=== PATIENT | female | born 1995 | race Caucasian/White ===

== ENCOUNTER 2016-06-25 07:03 | Emergency (ER) | payer MEDICAID, OTHER ==
[2016-06-25 08:12] LABS: CONTROL LINE UCG INT CTR LINE PRESENT
[2016-06-25 08:25] LABS: BASO % 0.3 % (0.0-1.0); EOS # 0.3 K/mm3 (0.0-0.50); EOS % 2.8 % (0.0-3.0); LARGE UNSTAINED CELL # 0.2 K/mm3 (0.0-0.4); LARGE UNSTAINED CELL % 1.9 % (0.0-4.0); LYMPH # 2.9 K/mm3 (1.5-6.5); LYMPH % 29.4 % (24.0-44.0); MEAN CORPUSCULAR HEMOGLOBIN 29.2 pg (27.0-33.0); MEAN CORPUSCULAR HGB CONC 34.4 g/dl (32.0-36.5); MONO # 0.7 K/mm3 (0.0-0.8); NEUTROPHILS # 5.8 K/mm3 (1.8-7.7); NEUTROPHILS % 58.6 % (36.0-66.0); PLATELET COUNT, AUTOMATED 265 k/mm3 (150-450); RED CELL DISTRIBUTION WIDTH 12.6 % (11.5-14.5)
[2016-06-25 08:45] LABS: ANION GAP 5 MEQ/L (8-16); BLOOD UREA NITROGEN 10 MG/DL (7-18); CARBON DIOXIDE LEVEL 27 MEQ/L (21-32); CHLORIDE LEVEL 110 MEQ/L (98-107); CREATININE FOR GFR 0.62 MG/DL (0.55-1.02); GLOMERULAR FILTRATION RATE > 60.0 (>60); GLUCOSE, FASTING 98 MG/DL (70-105); POTASSIUM SERUM 4.4 MEQ/L (3.5-5.1); SODIUM LEVEL 142 MEQ/L (136-145)
[2016-06-25] MEDS ORDERED: KETOROLAC 30 MG/ML VIAL (J1885) As Ordered ONE (09:01)
[2016-06-25] MEDS ORDERED: MORPHINE 4 MG/ML 1ML SYRINGE As Ordered ONE (09:42)
[2016-06-25] MEDS ORDERED: CIPROFLOXACIN/D5W 400 MG/200 ML BAG (J0744) As Ordered ONE (09:43)
--- NOTE | 2016-06-25 12:23 | EDDOCDS ---
Physician Documentation [facility] Name: Laurita Barbosa Age: 21 yrs Sex: Female : 1995 Arrival Date: 06/25/2016 Time: 07:03 Bed I4 / M4 Private MD: Disposition: 06/25/16 12:12 Discharged to Home/Self Care. Impression: Acute cystitis. - Condition is Stable. - Discharge Instructions: Urinary Tract Infection. - Prescriptions for Cipro 500 mg Oral Tablet - take 1 tablet by ORAL route 2 times per day; 6 tablet. Naprosyn 500 mg Oral Tablet - take 1 tablet by ORAL route 2 times per day take with food; 30 tablet. Pyridium 200 mg Oral Tablet - take 1 tablet by ORAL route every 8 hours for 3 days; 9 tablet. - Medication Reconciliation, Local Pharmacy Hours form. - Follow up: Private Physician; When: 2 - 3 days; Reason: Recheck today's complaints. Follow up: Emergency Department; When: As needed; Reason: Fever > 102F, Worsening of conditions. - Problem is new. - Symptoms have improved. Historical: - Allergies: Bees; - Home Meds: 1. Xanax 0.5 mg oral tab 2. gabapentin 300 mg Oral cap nightly 3. Prozac Unknown Oral once daily - PMHx: Anxiety; Seizure Disorder; atrial-septal aneursym; Depression; - PSHx: Appendectomy; Tonsillectomy; - Social history: Smoking status: Patient uses tobacco products, current every day smoker. No barriers to communication noted, The patient speaks fluent Swedish, Speaks appropriately for age. - Family history: Not pertinent. - : The pt / caregiver states he / she is not on anticoagulants. Home medication list is obtained from the patient. - Exposure Risk Screening:: None identified. 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 2 in. (157.48 cm); 09:25 BP 107 / 65; Pulse 69; Resp 18; Temp 96.5; Pulse Ox 99% ; Pain 9/10; jam1 11:09 Pain 9/10; dls 11:52 BP 126 / 65; Pulse 88; Resp 18; Temp 97.0; Pulse Ox 97% ; Pain 9/10; jam1 07:31 Body Mass Index 30.54 (75.75 kg, 157.48 cm) kr3 MDM: 07:27 UA Ordered. EDMS 07:30 Urine Culture Ordered. EDMS 07:56 Financial registration complete. lg 07:56 IV Saline Lock ordered. ar2 07:56 NS 0.9% 1000 ml IV at bolus once ordered. ar2 07:57 UCG- In Lab Ordered. EDMS 07:57 CBC with Diff Ordered. EDMS 07:57 MED Profile Ordered. EDMS 08:19 UA Reviewed. ar2 08:19 UCG- In Lab Reviewed. ar2 08:37 CBC with Diff Reviewed. ar2 08:41 [facility] [place] Payment Agreement was scanned into [employer] and attached to record. lg 08:50 ketorolac 30 mg IVP once ordered. ar2 08:50 MED Profile Reviewed. ar2 08:52 CT ABD & PELVIS: No Contrast Ordered. EDMS 09:38 -US Pelvic Non-Ob Complete Ordered. EDMS 09:38 DUPLEX SCAN LIMITED (DOPPLER)+US Ordered. EDMS 09:39 morphine 4 mg IVP once ordered. ar2 09:39 Ciprofloxacin 400 mg IVPB at 200 mL/hr once over 60 mins ordered. ar2 Administered Medications: 08:19 Drug: NS 0.9% 1000 ml [sodium chloride 0.9 % intravenous solution] Route: IV; Rate: dls bolus; Site: right hand; 11:09 Follow up: IV Status: Completed infusion dls 09:04 Drug: ketorolac 30 mg [ketorolac 30 mg/mL (1 mL) injection solution (1 mL)] Route: IVP; dls Site: right hand; 09:59 Drug: morphine 4 mg [morphine 4 mg/mL intravenous cartridge (1 mL)] Route: IVP; Site: dls right hand; 11:09 Follow up: Pain 9/10 Adult dls 09:59 Drug: Ciprofloxacin 400 mg [ciprofloxacin 400 mg/200 mL in 5 % dextrose intravenous dls piggyback] Route: IVPB; Rate: 200 mL/hr; Infused Over: 60 mins; Site: right hand; 11:08 Follow up: IV Status: Completed infusion dls Signatures: Dispatcher [employer]Host EDBrian Frya, RN RN dls Narciso Hannon, Reg Reg lg Richelle Roberto RN RN kr3 Basil Ferrell, PADouglas PADouglas ar2 Chris Noel RN RN mb9 The chart was reviewed and I authenticate all verbal orders and agree with the evaluation and treatment provided.Attachments: 08:41 [facility] Payment Agreement lg MTDD
--- NOTE | 2016-06-25 12:23 | EDDOCDS ---
Nurse's Notes [facility] Name: Laurita Barbosa Age: 21 yrs Sex: Female : 1995 Arrival Date: 06/25/2016 Time: 07:03 Bed I4 / M4 Private MD: Diagnosis: Acute cystitis Presentation: 06/25 07:22 Presenting complaint: Patient states: burning with urination for 3 days and now blood kr3 in urine. Adult Sepsis Screening: The patient does not have new or worsening altered mentation. Patient's respiratory rate is less than 22. Systolic blood pressure is greater than 100. Patient has a qSOFA score of 0- Negative Sepsis Screen. Suicide/Homicide risk assessment- the patient denies having any suicidal and/or homicidal ideations and does not present with any other emotional, behavioral or mental health complaints. Status: Patient is not a supervisor cooler service or dependent. Transition of care: patient was not received from another setting of care. 07:22 Method Of Arrival: Walkin/Carried/Asstd kr3 07:22 Acuity: ASHLEY Level 4 kr3 Triage Assessment: 07:24 General: Appears uncomfortable, Behavior is cooperative. Pain: Pain currently is 9 out kr3 of 10 on a pain scale. HIV screening NA for this visit Offered previously. GI: Reports nausea. : Reports burning with urination hematuria urgency urinary frequency. Derm: No deficits noted. 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 Xanax 0.5 mg oral tab 2. gabapentin 300 mg Oral cap nightly 3. Prozac Unknown Oral once daily - PMHx: Anxiety; Seizure Disorder; atrial-septal aneursym; Depression; - PSHx: Appendectomy; Tonsillectomy; - Social history: Smoking status: Patient uses tobacco products, current every day smoker. No barriers to communication noted, The patient speaks fluent Albanian, Speaks appropriately for age. - Family history: Not pertinent. - : The pt / caregiver states he / she is not on anticoagulants. Home medication list is obtained from the patient. - Exposure Risk Screening:: None identified. Screenin:21 Screening information is obtained from the patient. Fall risk: No risks identified. dls Assistance ADL's: requires no assistance with activities of daily living. Abuse/DV Screen: The patient / caregiver reports he/she is: not in a situation that causes fear, pain or injury. Nutritional screening: No deficits noted. Advance Directives: Currently, there is no health care proxy. There is no active DNR order. There is no living will. There is no Power of Rheologist. Advance directive information has not previously been placed in an [facility] medical record. home support is adequate. Assessment: 08:20 General: Appears uncomfortable, unkempt, well nourished, well groomed, Behavior is dls cooperative. Neurological: No deficits noted. Neurological: No deficits noted. EENT: No deficits noted. Cardiovascular: No deficits noted. Respiratory: No deficits noted. GI: Abdomen is non- distended Bowel sounds present X 4 quads. Abd is soft Abd is tender to palpation in right lower quadrant and left lower quadrant. : No deficits noted. Derm: No deficits noted. Musculoskeletal: No deficits noted. 09:04 General: Medicated pt IV for discomfort IV bolus infusing site remains clear. dls 09:59 General: Pt states no real relief of discomfort after Toradol pt re-medicated and IV dls meds infusing via infusion pump.. 11:09 General: Pt returned from ultrasound IV meds infused pt states her pain is 9/10 dls currently.. Vital Signs: 07:31 BP 133 / 65; Pulse 83; Resp 16; Temp 96.5(O); Pulse Ox 97% on R/A; Weight 75.75 kg (R); kr3 Height 5 ft. 2 in. (157.48 cm); 09:25 BP 107 / 65; Pulse 69; Resp 18; Temp 96.5; Pulse Ox 99% ; Pain 9/10; jam1 11:09 Pain 9/10; dls 11:52 BP 126 / 65; Pulse 88; Resp 18; Temp 97.0; Pulse Ox 97% ; Pain 9/10; jam1 07:31 Body Mass Index 30.54 (75.75 kg, 157.48 cm) kr3 Vitals: 07:24 Log In Time: June 25, 2016 at 07:03. kr3 ED Course: 07:08 Patient visited by Mely Hankins. gjb 07:08 Patient moved to Waiting gjb 07:23 Triage Initiated kr3 07:31 UA Sent. kr3 07:33 Patient moved to Pre RCE kr3 07:39 Patient moved to I4 / M4 jam1 07:46 Basil Ferrell [facility] ar2 07:46 Femi Rodriguez MD is Attending Physician. ar2 07:47 Patient visited by Basil Ferrell PA-C. ar2 08:19 MED Profile Sent. dls 08:19 CBC with Diff Sent. dls 08:19 Inserted saline lock: 20 gauge in right hand and blood collected. The patient tolerated dls the procedure well. No procedures done that require assistance. Labs drawn. (by ED staff). Urine collected. Clean catch specimen. 08:21 The patient / caregiver is instructed regarding the plan of care and ED course. dls 08:38 Patient name changed from Laurita\S\[place]\S\[place]\S\ to Laurita\S\ \S\[place]. EDMS 08:41 [facility] Payment Agreement was scanned into EDUSHOST and attached to record. lg 08:46 Patient visited by Debbie Martinez RN. dls 10:00 Patient visited by Debbie Martinez RN. dls 10:31 Patient moved to Ultrasound sm5 11:01 Patient moved to I4 / M4 sm5 11:09 DUPLEX SCAN LIMITED (DOPPLER)+US Returned. dls 11:23 Patient visited by Debbie Martinez RN. dls 12:21 Discontinued IV lock intact, bleeding controlled, pressure dressing applied, No mb9 redness/swelling at site. Administered Medications: 08:19 Drug: NS 0.9% 1000 ml [sodium chloride 0.9 % intravenous solution] Route: IV; Rate: dls bolus; Site: right hand; :09 Follow up: IV Status: Completed infusion dls 09:04 Drug: ketorolac 30 mg [ketorolac 30 mg/mL (1 mL) injection solution (1 mL)] Route: IVP; dls Site: right hand; :59 Drug: morphine 4 mg [morphine 4 mg/mL intravenous cartridge (1 mL)] Route: IVP; Site: dls right hand; : Follow up: Pain 02/11 Adult dls 09:59 Drug: Ciprofloxacin 400 mg [ciprofloxacin 400 mg/200 mL in 5 % dextrose intravenous dls piggyback] Route: IVPB; Rate: 200 mL/hr; Infused Over: 60 mins; Site: right hand; :08 Follow up: IV Status: Completed infusion dls Order Results: Lab Order: UA; SPEC'M 06/25/16 07:30 Test: APPEARANCE, URINE; Value: CLOUDY; Range: CLEAR; Abnormal: Above high normal; Status: F Test: COLOR, URINE; Value: YELLOW; Range: YELLOW; Status: F Test: PH,URINE; Value: 5.0; Range: 5.0-9.0; Units: UNITS; Status: F Test: SPECIFIC GRAVITY URINE AUTO; Value: 1.011; Range: 1.002-1.035; Status: F Test: PROTEIN, URINE AUTO; Value: NEGATIVE; Range: NEGATIVE; Units: mg/dL; Status: F Test: GLUCOSE, URINE (UA) AUTO; Value: NEGATIVE; Range: NEGATIVE; Units: mg/dL; Status: F Test: KETONE, URINE AUTO; Value: NEGATIVE; Range: NEGATIVE; Units: mg/dL; Status: F Test: UROBILINOGEN, URINE AUTO; Value: 0.2; Range: 0.0-2.0; Units: mg/dL; Status: F Test: BILIRUBIN, URINE AUTO; Value: NEGATIVE; Range: NEGATIVE; Status: F Test: NITRITE, URINE AUTO; Value: NEGATIVE; Range: NEGATIVE; Status: F Test: LEUKOCYTE ESTERASE, URINE AUTO; Value: 3+; Range: NEGATIVE; Abnormal: Above high normal; Status: F Test: BLOOD, URINE BLOOD; Value: 3+; Range: NEGATIVE; Abnormal: Above high normal; Status: F Test: WBC, URINE AUTO; Value: TNTC; Range: 0-3; Abnormal: Above high normal; Units: /HPF; Status: F Test: RBC, URINE AUTO; Value: TNTC; Range: 0-3; Abnormal: Above high normal; Units: /HPF; Status: F Test: BACTERIA, URINE AUTO; Value: NEGATIVE; Range: NEGATIVE; Status: F Test: SQUAMOUS EPITHELIAL CELL UR AU; Value: 1; Range: 0-6; Units: /HPF; Status: F Test: MUCUS, URINE; Value: SMALL; Range: NEGATIVE; Status: F Test: HYALINE CAST, URINE AUTO; Value: 0; Range: 0-1; Units: /LPF; Status: F Lab Order: UCG- In Lab; SPEC'M 06/25/16 07:29 Test: URINE PREG TEST; Value: NEGATIVE; Range: NEGATIVE; Status: F Lab Order: CBC with Diff; SPEC'M 06/25/16 08:17 Test: WHITE BLOOD COUNT; Value: 10.0; Range: 4.0-10.0; Units: K/mm3; Status: F Test: RED BLOOD COUNT; Value: 4.25; Range: 4.00-5.40; Units: M/mm3; Status: F Test: HEMOGLOBIN; Value: 12.4; Range: 12.0-16.0; Units: g/dl; Status: F Test: HEMATOCRIT; Value: 36.1; Range: 36.0-47.0; Units: %; Status: F Test: MEAN CORPUSCULAR VOLUME; Value: 85.0; Range: 80.0-96.0; Units: fl; Status: F Test: MEAN CORPUSCULAR HEMOGLOBIN; Value: 29.2; Range: 27.0-33.0; Units: pg; Status: F Test: MEAN CORPUSCULAR HGB CONC; Value: 34.4; Range: 32.0-36.5; Units: g/dl; Status: F Test: RED CELL DISTRIBUTION WIDTH; Value: 12.6; Range: 11.5-14.5; Units: %; Status: F Test: PLATELET COUNT, AUTOMATED; Value: 265; Range: 150-450; Units: k/mm3; Status: F Test: NEUTROPHILS %; Value: 58.6; Range: 36.0-66.0; Units: %; Status: F Test: LYMPH %; Value: 29.4; Range: 24.0-44.0; Units: %; Status: F Test: MONO %; Value: 7.0; Range: 0.0-5.0; Abnormal: Above high normal; Units: %; Status: F Test: EOS %; Value: 2.8; Range: 0.0-3.0; Units: %; Status: F Test: BASO %; Value: 0.3; Range: 0.0-1.0; Units: %; Status: F Test: LARGE UNSTAINED CELL %; Value: 1.9; Range: 0.0-4.0; Units: %; Status: F Test: NEUTROPHILS #; Value: 5.8; Range: 1.8-7.7; Units: K/mm3; Status: F Test: LYMPH #; Value: 2.9; Range: 1.5-6.5; Units: K/mm3; Status: F Test: MONO #; Value: 0.7; Range: 0.0-0.8; Units: K/mm3; Status: F Test: EOS #; Value: 0.3; Range: 0.0-0.50; Units: K/mm3; Status: F Test: BASO #; Value: 0.0; Range: 0.0-0.2; Units: K/mm3; Status: F Test: LARGE UNSTAINED CELL #; Value: 0.2; Range: 0.0-0.4; Units: K/mm3; Status: F Lab Order: MED Profile; SPEC'M 06/25/16 08:17 Test: GLUCOSE, FASTING; Value: 98; Range: 70-105; Units: MG/DL; Status: F Test: BLOOD UREA NITROGEN; Value: 10; Range: 7-18; Units: MG/DL; Status: F Test: CREATININE FOR GFR; Value: 0.62; Range: 0.55-1.02; Units: MG/DL; Status: F Test: GLOMERULAR FILTRATION RATE; Value: > 60.0; Range: >60; Status: F Test: SODIUM LEVEL; Value: 142; Range: 136-145; Units: MEQ/L; Status: F Test: POTASSIUM SERUM; Value: 4.4; Range: 3.5-5.1; Units: MEQ/L; Status: F Test: CHLORIDE LEVEL; Value: 110; Range: 98-107; Abnormal: Above high normal; Units: MEQ/L; Status: F Test: CARBON DIOXIDE LEVEL; Value: 27; Range: 21-32; Units: MEQ/L; Status: F Test: ANION GAP; Value: 5; Range: 8-16; Abnormal: Below low normal; Units: MEQ/L; Status: F Test: CALCIUM LEVEL; Value: 9.0; Range: 8.5-10.1; Units: MG/DL; Status: F Test Note: ; Units are mL/min/1.73 m2 Chronic Kidney Disease Staging per NKF: Stage I & II GFR >=60 Normal to Mildly Decreased Stage III GFR 30-59 Moderately Decreased Stage IV GFR 15-29 Severely Decreased Stage V GFR <15 Very Little GFR Left ESRD GFR <15 on COUNCILPERSON Outcome: 12:12 Discharge ordered by Provider. ar2 12:21 Discharge Assessment: Patient awake, alert and oriented x 3. No cognitive and/or mb9 functional deficits noted. Patient verbalized understanding of disposition instructions. patient administered narcotics - no. The following High Risk Discharge criteria are identified: None. Discharged to home ambulatory. Condition: good Condition: stable Condition: improved. Discharge instructions given to patient, Instructed on discharge instructions, follow up and referral plans. medication usage, diet, Demonstrated understanding of instructions, medications, Pt was receptive of discharge instructions/ teaching. Prescriptions given X 3. No special radiology studies were completed. Property :Personal belongings accompany Pt. 12:23 Patient left the ED. mb9 Signatures: Dispatcher MedHost EDMS Debbie Martinez RN RN Nathaly Cochran, [employer] GLAZER [employer] GLAZER jam1 Narciso Hannon, Reg Reg lg [place] sm5 Richelle RobertoRN RN kr3 Basil Ferrell, PA-C PA-Chas ar2 Chris Noel RN RN mb9 Mely Hankins Corrections: (The following items were deleted from the chart) 07:32 07:22 Acuity: ASHLEY Level 3 kr3 kr3 10:36 10:31 General: . dls dls MTDD
--- NOTE | 2016-06-25 20:58 | REP ---
Pelvic ultrasound non OB 06/25/2016 Indication: Adnexal pain, exclude torsion; left lower quadrant pain Comparison: CT of the abdomen pelvis 06/25/2016, pelvic ultrasound 04/07/2016 Technique: Color-flow Doppler spectral wave Doppler baca-scale imaging was used to evaluate the pelvis. Study was performed trans abdominally and Findings: Date of last menstrual period was 1 month ago. The patient is G2, P 0 Uterus measures 7.9 x 2.8 x 4.5 cm. Endometrium is 6.1 mm in thickness and smooth. Right ovary measures 3.9 x 2.5 x 2.8 cm contains tiny follicles and is normal in appearance. Left ovary measures 4.5 x 3.2 x 3.8 cm also contains tiny follicles and is normal in appearance. Perfusion is noted to the bilateral ovaries, therefore no evidence of ovarian torsion. There is no free fluid in the cul-de-sac. The bladder measures 9.3 x 6.8 x 9.5 cm and is unremarkable in appearance Impression 1. Endometrium 6 mm in thickness and smooth. 2. Unremarkable ovaries without masses or torsion. No free fluid in cul-de-sac 3. Unremarkable bladder Signed by Ayanna Hernández MD 06/25/2016 08:50 P
--- NOTE | 2016-06-25 21:00 | REP ---
CT abdomen pelvis 06/25/2016 Indication renal colic, left flank pain Comparison: Pelvic ultrasound 04/07/2016 Technique: 3 mm spiral axial sections performed through abdomen and pelvis without contrast Findings: Lung bases are clear bilaterally. Liver, spleen, pancreas, gallbladder are normal. Adrenal glands are normal. Kidneys are without hydronephrosis or obstructing ureteral calculi bilaterally. There is no perinephric stranding. Stomach and small bowel are within normal limits. The terminal ileum is normal. Appendix is surgically absent. Abdominal aorta is of normal course and caliber. There are no pathologically enlarged retroperitoneal nodes. Bladder is normal. The uterus is unremarkable. Complex 3 cm left ovarian cystic structure and is likely a hemorrhagic cyst. There is a small right ovarian cyst of 2 cm diameter. There is no free fluid in cul-de-sac. There is no free air. There is moderate retained stool throughout the colon. There are multiple small sub centimeter ileocolic nodes. Impression 1. No hydronephrosis or obstructing ureteral calculi bilaterally 2. Complex 3 cm left ovarian cyst, possibly a hemorrhagic cyst. If there are symptoms referable to this location may consider pelvic ultrasound with Doppler 3. Simple 2 cm right ovarian cyst 4. Subcentimeter ileocolic nodes, likely reactive Signed by Ayanna Hernández MD 06/25/2016 08:52 P
--- NOTE | 2016-06-27 13:23 | EDDOCDS ---
Physician Documentation [facility] Name: Laurita Barbosa Age: 21 yrs Sex: Female : 1995 Arrival Date: 06/25/2016 Time: 07:03 Bed I4 / M4 Private MD: Disposition: 06/25/16 12:12 Discharged to Home/Self Care. Impression: Acute cystitis. - Condition is Stable. - Discharge Instructions: Urinary Tract Infection. - Prescriptions for Cipro 500 mg Oral Tablet - take 1 tablet by ORAL route 2 times per day; 6 tablet. Naprosyn 500 mg Oral Tablet - take 1 tablet by ORAL route 2 times per day take with food; 30 tablet. Pyridium 200 mg Oral Tablet - take 1 tablet by ORAL route every 8 hours for 3 days; 9 tablet. - Medication Reconciliation, Local Pharmacy Hours form. - Follow up: Private Physician; When: 2 - 3 days; Reason: Recheck today's complaints. Follow up: Emergency Department; When: As needed; Reason: Fever > 102F, Worsening of conditions. - Problem is new. - Symptoms have improved. Historical: - Allergies: Bees; - Home Meds: 1. Xanax 0.5 mg oral tab 2. gabapentin 300 mg Oral cap nightly 3. Prozac Unknown Oral once daily - PMHx: Anxiety; Seizure Disorder; atrial-septal aneursym; Depression; - PSHx: Appendectomy; Tonsillectomy; - Social history: Smoking status: Patient uses tobacco products, current every day smoker. No barriers to communication noted, The patient speaks fluent Occitan, Speaks appropriately for age. - Family history: Not pertinent. - : The pt / caregiver states he / she is not on anticoagulants. Home medication list is obtained from the patient. - Exposure Risk Screening:: None identified. 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 2 in. (157.48 cm); 09:25 BP 107 / 65; Pulse 69; Resp 18; Temp 96.5; Pulse Ox 99% ; Pain 9/10; jam1 11:09 Pain 9/10; dls 11:52 BP 126 / 65; Pulse 88; Resp 18; Temp 97.0; Pulse Ox 97% ; Pain 9/10; jam1 07:31 Body Mass Index 30.54 (75.75 kg, 157.48 cm) kr3 MDM: 07:27 UA Ordered. EDMS 07:30 Urine Culture Ordered. EDMS 07:56 Financial registration complete. lg 07:56 IV Saline Lock ordered. ar2 07:56 NS 0.9% 1000 ml IV at bolus once ordered. ar2 07:57 UCG- In Lab Ordered. EDMS 07:57 CBC with Diff Ordered. EDMS 07:57 MED Profile Ordered. EDMS 08:19 UA Reviewed. ar2 08:19 UCG- In Lab Reviewed. ar2 08:37 CBC with Diff Reviewed. ar2 08:41 [facility] Payment Agreement was scanned into [employer] and attached to record. lg 08:50 ketorolac 30 mg IVP once ordered. ar2 08:50 MED Profile Reviewed. ar2 08:52 CT ABD & PELVIS: No Contrast Ordered. EDMS 09:38 -US Pelvic Non-Ob Complete Ordered. EDMS 09:38 DUPLEX SCAN LIMITED (DOPPLER)+US Ordered. EDMS 09:39 morphine 4 mg IVP once ordered. ar2 09:39 Ciprofloxacin 400 mg IVPB at 200 mL/hr once over 60 mins ordered. ar2 19:38 T-Sheet-- Draft Copy was scanned into [employer] and attached to record. klr Administered Medications: 08:19 Drug: NS 0.9% 1000 ml [sodium chloride 0.9 % intravenous solution] Route: IV; Rate: dls bolus; Site: right hand; 11:09 Follow up: IV Status: Completed infusion dls 09:04 Drug: ketorolac 30 mg [ketorolac 30 mg/mL (1 mL) injection solution (1 mL)] Route: IVP; dls Site: right hand; 09:59 Drug: morphine 4 mg [morphine 4 mg/mL intravenous cartridge (1 mL)] Route: IVP; Site: dls right hand; 11:09 Follow up: Pain 9/10 Adult dls 09:59 Drug: Ciprofloxacin 400 mg [ciprofloxacin 400 mg/200 mL in 5 % dextrose intravenous dls piggyback] Route: IVPB; Rate: 200 mL/hr; Infused Over: 60 mins; Site: right hand; 11:08 Follow up: IV Status: Completed infusion dls Signatures: Dispatcher [employer]Host Debbie Bean RN RN dls Narciso Hannon, [facility] Richelle Roberto RN RN kr3 Basil Ferrell, PAFranklinC PADouglas ar2 Chris Noel RN RN mb9 Fallon Braswell The chart was reviewed and I authenticate all verbal orders and agree with the evaluation and treatment provided.Attachments: 08:41 [facility] Payment Agreement lg 19:38 T-Sheet-- Draft Copy klr Chart Complete MTDD
--- NOTE | 2016-06-27 13:23 | EDDOCDS ---
Physician Documentation [facility] Name: Laurita Barbosa Age: 21 yrs Sex: Female : 1995 Arrival Date: 06/25/2016 Time: 07:03 Bed I4 / M4 Private MD: Disposition: 06/25/16 12:12 Discharged to Home/Self Care. Impression: Acute cystitis. - Condition is Stable. - Discharge Instructions: Urinary Tract Infection. - Prescriptions for Cipro 500 mg Oral Tablet - take 1 tablet by ORAL route 2 times per day; 6 tablet. Naprosyn 500 mg Oral Tablet - take 1 tablet by ORAL route 2 times per day take with food; 30 tablet. Pyridium 200 mg Oral Tablet - take 1 tablet by ORAL route every 8 hours for 3 days; 9 tablet. - Medication Reconciliation, Local Pharmacy Hours form. - Follow up: Private Physician; When: 2 - 3 days; Reason: Recheck today's complaints. Follow up: Emergency Department; When: As needed; Reason: Fever > 102F, Worsening of conditions. - Problem is new. - Symptoms have improved. Historical: - Allergies: Bees; - Home Meds: 1. Xanax 0.5 mg oral tab 2. gabapentin 300 mg Oral cap nightly 3. Prozac Unknown Oral once daily - PMHx: Anxiety; Seizure Disorder; atrial-septal aneursym; Depression; - PSHx: Appendectomy; Tonsillectomy; - Social history: Smoking status: Patient uses tobacco products, current every day smoker. No barriers to communication noted, The patient speaks fluent Kyrgyz, Speaks appropriately for age. - Family history: Not pertinent. - : The pt / caregiver states he / she is not on anticoagulants. Home medication list is obtained from the patient. - Exposure Risk Screening:: None identified. 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 2 in. (157.48 cm); 09:25 BP 107 / 65; Pulse 69; Resp 18; Temp 96.5; Pulse Ox 99% ; Pain 9/10; jam1 11:09 Pain 9/10; dls 11:52 BP 126 / 65; Pulse 88; Resp 18; Temp 97.0; Pulse Ox 97% ; Pain 9/10; jam1 07:31 Body Mass Index 30.54 (75.75 kg, 157.48 cm) kr3 MDM: 07:27 UA Ordered. EDMS 07:30 Urine Culture Ordered. EDMS 07:56 Financial registration complete. lg 07:56 IV Saline Lock ordered. ar2 07:56 NS 0.9% 1000 ml IV at bolus once ordered. ar2 07:57 UCG- In Lab Ordered. EDMS 07:57 CBC with Diff Ordered. EDMS 07:57 MED Profile Ordered. EDMS 08:19 UA Reviewed. ar2 08:19 UCG- In Lab Reviewed. ar2 08:37 CBC with Diff Reviewed. ar2 08:41 [facility] Payment Agreement was scanned into [employer] and attached to record. lg 08:50 ketorolac 30 mg IVP once ordered. ar2 08:50 MED Profile Reviewed. ar2 08:52 CT ABD & PELVIS: No Contrast Ordered. EDMS 09:38 -US Pelvic Non-Ob Complete Ordered. EDMS 09:38 DUPLEX SCAN LIMITED (DOPPLER)+US Ordered. EDMS 09:39 morphine 4 mg IVP once ordered. ar2 09:39 Ciprofloxacin 400 mg IVPB at 200 mL/hr once over 60 mins ordered. ar2 19:38 T-Sheet-- Draft Copy was scanned into [employer] and attached to record. klr Administered Medications: 08:19 Drug: NS 0.9% 1000 ml [sodium chloride 0.9 % intravenous solution] Route: IV; Rate: dls bolus; Site: right hand; 11:09 Follow up: IV Status: Completed infusion dls 09:04 Drug: ketorolac 30 mg [ketorolac 30 mg/mL (1 mL) injection solution (1 mL)] Route: IVP; dls Site: right hand; 09:59 Drug: morphine 4 mg [morphine 4 mg/mL intravenous cartridge (1 mL)] Route: IVP; Site: dls right hand; 11:09 Follow up: Pain 9/10 Adult dls 09:59 Drug: Ciprofloxacin 400 mg [ciprofloxacin 400 mg/200 mL in 5 % dextrose intravenous dls piggyback] Route: IVPB; Rate: 200 mL/hr; Infused Over: 60 mins; Site: right hand; 11:08 Follow up: IV Status: Completed infusion dls Signatures: Dispatcher [employer] Debbie Bean RN RN dls Narciso Hannon, [facility] Richelle Roberto RN RN kr3 Basil Ferrell, PAFranklinC PADouglas ar2 Chris Noel RN RN mb9 Fallon Braswell The chart was reviewed and I authenticate all verbal orders and agree with the evaluation and treatment provided.Attachments: 08:41 [facility] Payment Agreement lg 19:38 T-Sheet-- Draft Copy klr Chart Complete MTDD
--- NOTE | 2016-06-27 13:25 | EDDOCDS ---
Nurse's Notes [facility] Name: Laurita Barbosa Age: 21 yrs Sex: Female : 1995 Arrival Date: 06/25/2016 Time: 07:03 Bed I4 / M4 Private MD: Diagnosis: Acute cystitis Presentation: 06/25 07:22 Presenting complaint: Patient states: burning with urination for 3 days and now blood kr3 in urine. Adult Sepsis Screening: The patient does not have new or worsening altered mentation. Patient's respiratory rate is less than 22. Systolic blood pressure is greater than 100. Patient has a qSOFA score of 0- Negative Sepsis Screen. Suicide/Homicide risk assessment- the patient denies having any suicidal and/or homicidal ideations and does not present with any other emotional, behavioral or mental health complaints. 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 Transition of care: patient was not received from another setting of care. 07:22 Method Of Arrival: Walkin/Carried/Asstd kr3 07:22 Acuity: ASHLEY Level 4 kr3 Triage Assessment: 07:24 General: Appears uncomfortable, Behavior is cooperative. Pain: Pain currently is 9 out kr3 of 10 on a pain scale. HIV screening NA for this visit Offered previously. GI: Reports nausea. : Reports burning with urination hematuria urgency urinary frequency. Derm: No deficits noted. 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 Xanax 0.5 mg oral tab 2. gabapentin 300 mg Oral cap nightly 3. Prozac Unknown Oral once daily - PMHx: Anxiety; Seizure Disorder; atrial-septal aneursym; Depression; - PSHx: Appendectomy; Tonsillectomy; - Social history: Smoking status: Patient uses tobacco products, current every day smoker. No barriers to communication noted, The patient speaks fluent Polish, Speaks appropriately for age. - Family history: Not pertinent. - : The pt / caregiver states he / she is not on anticoagulants. Home medication list is obtained from the patient. - Exposure Risk Screening:: None identified. Screenin:21 Screening information is obtained from the patient. Fall risk: No risks identified. dls Assistance ADL's: requires no assistance with activities of daily living. Abuse/DV Screen: The patient / caregiver reports he/she is: not in a situation that causes fear, pain or injury. Nutritional screening: No deficits noted. Advance Directives: Currently, there is no health care proxy. There is no active DNR order. There is no living will. There is no Power of [place]. Advance directive information has not previously been placed in an [facility] medical record. home support is adequate. Assessment: 08:20 General: Appears uncomfortable, unkempt, well nourished, well groomed, Behavior is dls cooperative. Neurological: No deficits noted. Neurological: No deficits noted. EENT: No deficits noted. Cardiovascular: No deficits noted. Respiratory: No deficits noted. GI: Abdomen is non- distended Bowel sounds present X 4 quads. Abd is soft Abd is tender to palpation in right lower quadrant and left lower quadrant. : No deficits noted. Derm: No deficits noted. Musculoskeletal: No deficits noted. 09:04 General: Medicated pt IV for discomfort IV bolus infusing site remains clear. dls 09:59 General: Pt states no real relief of discomfort after Toradol pt re-medicated and IV dls meds infusing via infusion pump.. 11:09 General: Pt returned from ultrasound IV meds infused pt states her pain is 9/10 dls currently.. Vital Signs: 07:31 BP 133 / 65; Pulse 83; Resp 16; Temp 96.5(O); Pulse Ox 97% on R/A; Weight 75.75 kg (R); kr3 Height 5 ft. 2 in. (157.48 cm); 09:25 BP 107 / 65; Pulse 69; Resp 18; Temp 96.5; Pulse Ox 99% ; Pain 9/10; jam1 11:09 Pain 9/10; dls 11:52 BP 126 / 65; Pulse 88; Resp 18; Temp 97.0; Pulse Ox 97% ; Pain 9/10; jam1 07:31 Body Mass Index 30.54 (75.75 kg, 157.48 cm) kr3 Vitals: 07:24 Log In Time: June 25, 2016 at 07:03. kr3 ED Course: 07:08 Patient visited by Mely Hankins. gjb 07:08 Patient moved to Waiting gjb 07:23 Triage Initiated kr3 07:31 UA Sent. kr3 07:33 Patient moved to Pre RCE kr3 07:39 Patient moved to I4 / M4 jam1 07:46 [facility] ar2 07:46 Femi Rodriguez MD is Attending Physician. ar2 07:47 Patient visited by Basil Ferrell PA-C. ar2 08:19 MED Profile Sent. dls 08:19 CBC with Diff Sent. dls 08:19 Inserted saline lock: 20 gauge in right hand and blood collected. The patient tolerated dls the procedure well. No procedures done that require assistance. Labs drawn. (by ED staff). Urine collected. Clean catch specimen. 08:21 The patient / caregiver is instructed regarding the plan of care and ED course. dls 08:38 Patient name changed from Laurita\S\Santos\S\[place]\S\ to Laurita\S\ \S\[place]. EDMS 08:41 [facility] Payment Agreement was scanned into [employer] and attached to record. lg 08:46 Patient visited by Debbie Martinez RN. dls 10:00 Patient visited by Debbie Martinez RN. dls 10:31 Patient moved to Ultrasound sm5 11:01 Patient moved to I4 / M4 sm5 11:09 DUPLEX SCAN LIMITED (DOPPLER)+US Returned. dls 11:23 Patient visited by Debbie Martinez RN. dls 12:21 Discontinued IV lock intact, bleeding controlled, pressure dressing applied, No mb9 redness/swelling at site. 19:38 T-Sheet-- Draft Copy was scanned into [employer] and attached to record. klr 21:42 -US Pelvic Non-Ob Complete Returned. EDMS 21:42 CT ABD & PELVIS: No Contrast Returned. EDMS Administered Medications: 08:19 Drug: NS 0.9% 1000 ml [sodium chloride 0.9 % intravenous solution] Route: IV; Rate: dls bolus; Site: right hand; 11:09 Follow up: IV Status: Completed infusion dls 09:04 Drug: ketorolac 30 mg [ketorolac 30 mg/mL (1 mL) injection solution (1 mL)] Route: IVP; dls Site: right hand; 09:59 Drug: morphine 4 mg [morphine 4 mg/mL intravenous cartridge (1 mL)] Route: IVP; Site: dls right hand; 11:09 Follow up: Pain 02/11 Adult dls 09:59 Drug: Ciprofloxacin 400 mg [ciprofloxacin 400 mg/200 mL in 5 % dextrose intravenous dls piggyback] Route: IVPB; Rate: 200 mL/hr; Infused Over: 60 mins; Site: right hand; 11:08 Follow up: IV Status: Completed infusion dls Order Results: Lab Order: UA; SPEC'M 06/25/16 07:30 Test: APPEARANCE, URINE; Value: CLOUDY; Range: CLEAR; Abnormal: Above high normal; Status: F Test: COLOR, URINE; Value: YELLOW; Range: YELLOW; Status: F Test: PH,URINE; Value: 5.0; Range: 5.0-9.0; Units: UNITS; Status: F Test: SPECIFIC GRAVITY URINE AUTO; Value: 1.011; Range: 1.002-1.035; Status: F Test: PROTEIN, URINE AUTO; Value: NEGATIVE; Range: NEGATIVE; Units: mg/dL; Status: F Test: GLUCOSE, URINE (UA) AUTO; Value: NEGATIVE; Range: NEGATIVE; Units: mg/dL; Status: F Test: KETONE, URINE AUTO; Value: NEGATIVE; Range: NEGATIVE; Units: mg/dL; Status: F Test: UROBILINOGEN, URINE AUTO; Value: 0.2; Range: 0.0-2.0; Units: mg/dL; Status: F Test: BILIRUBIN, URINE AUTO; Value: NEGATIVE; Range: NEGATIVE; Status: F Test: NITRITE, URINE AUTO; Value: NEGATIVE; Range: NEGATIVE; Status: F Test: LEUKOCYTE ESTERASE, URINE AUTO; Value: 3+; Range: NEGATIVE; Abnormal: Above high normal; Status: F Test: BLOOD, URINE BLOOD; Value: 3+; Range: NEGATIVE; Abnormal: Above high normal; Status: F Test: WBC, URINE AUTO; Value: TNTC; Range: 0-3; Abnormal: Above high normal; Units: /HPF; Status: F Test: RBC, URINE AUTO; Value: TNTC; Range: 0-3; Abnormal: Above high normal; Units: /HPF; Status: F Test: BACTERIA, URINE AUTO; Value: NEGATIVE; Range: NEGATIVE; Status: F Test: SQUAMOUS EPITHELIAL CELL UR AU; Value: 1; Range: 0-6; Units: /HPF; Status: F Test: MUCUS, URINE; Value: SMALL; Range: NEGATIVE; Status: F Test: HYALINE CAST, URINE AUTO; Value: 0; Range: 0-1; Units: /LPF; Status: F Lab Order: Urine Culture; SPEC'M 06/25/16 07:29 Test: URINE CULTURE; Value: URINE CULTURE RESULT NO GROWTH CLINICAL SIGNIFICANCE 1 ORGANISM; Status: F Lab Order: UCG- In Lab; SPEC'M 06/25/16 07:29 Test: URINE PREG TEST; Value: NEGATIVE; Range: NEGATIVE; Status: F Lab Order: CBC with Diff; SPEC'M 06/25/16 08:17 Test: WHITE BLOOD COUNT; Value: 10.0; Range: 4.0-10.0; Units: K/mm3; Status: F Test: RED BLOOD COUNT; Value: 4.25; Range: 4.00-5.40; Units: M/mm3; Status: F Test: HEMOGLOBIN; Value: 12.4; Range: 12.0-16.0; Units: g/dl; Status: F Test: HEMATOCRIT; Value: 36.1; Range: 36.0-47.0; Units: %; Status: F Test: MEAN CORPUSCULAR VOLUME; Value: 85.0; Range: 80.0-96.0; Units: fl; Status: F Test: MEAN CORPUSCULAR HEMOGLOBIN; Value: 29.2; Range: 27.0-33.0; Units: pg; Status: F Test: MEAN CORPUSCULAR HGB CONC; Value: 34.4; Range: 32.0-36.5; Units: g/dl; Status: F Test: RED CELL DISTRIBUTION WIDTH; Value: 12.6; Range: 11.5-14.5; Units: %; Status: F Test: PLATELET COUNT, AUTOMATED; Value: 265; Range: 150-450; Units: k/mm3; Status: F Test: NEUTROPHILS %; Value: 58.6; Range: 36.0-66.0; Units: %; Status: F Test: LYMPH %; Value: 29.4; Range: 24.0-44.0; Units: %; Status: F Test: MONO %; Value: 7.0; Range: 0.0-5.0; Abnormal: Above high normal; Units: %; Status: F Test: EOS %; Value: 2.8; Range: 0.0-3.0; Units: %; Status: F Test: BASO %; Value: 0.3; Range: 0.0-1.0; Units: %; Status: F Test: LARGE UNSTAINED CELL %; Value: 1.9; Range: 0.0-4.0; Units: %; Status: F Test: NEUTROPHILS #; Value: 5.8; Range: 1.8-7.7; Units: K/mm3; Status: F Test: LYMPH #; Value: 2.9; Range: 1.5-6.5; Units: K/mm3; Status: F Test: MONO #; Value: 0.7; Range: 0.0-0.8; Units: K/mm3; Status: F Test: EOS #; Value: 0.3; Range: 0.0-0.50; Units: K/mm3; Status: F Test: BASO #; Value: 0.0; Range: 0.0-0.2; Units: K/mm3; Status: F Test: LARGE UNSTAINED CELL #; Value: 0.2; Range: 0.0-0.4; Units: K/mm3; Status: F Lab Order: MED Profile; SPEC'M 06/25/16 08:17 Test: GLUCOSE, FASTING; Value: 98; Range: 70-105; Units: MG/DL; Status: F Test: BLOOD UREA NITROGEN; Value: 10; Range: 7-18; Units: MG/DL; Status: F Test: CREATININE FOR GFR; Value: 0.62; Range: 0.55-1.02; Units: MG/DL; Status: F Test: GLOMERULAR FILTRATION RATE; Value: > 60.0; Range: >60; Status: F Test: SODIUM LEVEL; Value: 142; Range: 136-145; Units: MEQ/L; Status: F Test: POTASSIUM SERUM; Value: 4.4; Range: 3.5-5.1; Units: MEQ/L; Status: F Test: CHLORIDE LEVEL; Value: 110; Range: 98-107; Abnormal: Above high normal; Units: MEQ/L; Status: F Test: CARBON DIOXIDE LEVEL; Value: 27; Range: 21-32; Units: MEQ/L; Status: F Test: ANION GAP; Value: 5; Range: 8-16; Abnormal: Below low normal; Units: MEQ/L; Status: F Test: CALCIUM LEVEL; Value: 9.0; Range: 8.5-10.1; Units: MG/DL; Status: F Test Note: ; Units are mL/min/1.73 m2 Chronic Kidney Disease Staging per NKF: Stage I & II GFR >=60 Normal to Mildly Decreased Stage III GFR 30-59 Moderately Decreased Stage IV GFR 15-29 Severely Decreased Stage V GFR <15 Very Little GFR Left ESRD GFR <15 on 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 Liver, spleen, pancreas,; gallbladder are normal. Adrenal glands are normal. Kidneys are without; hydronephrosis or obstructing ureteral calculi bilaterally. There is no; perinephric stranding. Stomach and small bowel are within normal limits. The; terminal ileum is normal. Appendix is surgically absent. Abdominal aorta is of; normal course and caliber. There are no pathologically enlarged retroperitoneal; nodes.; ; Bladder is normal. The uterus is unremarkable. Complex 3 cm left ovarian cystic; structure and is likely a hemorrhagic cyst. There is a small right ovarian cyst; of 2 cm diameter. There is no free fluid in cul-de-sac. There is no free air.; There is moderate retained stool throughout the colon. There are multiple small; sub centimeter ileocolic nodes.; ; Impression; 1. No hydronephrosis or obstructing ureteral calculi bilaterally; 2. Complex 3 cm left ovarian cyst, possibly a hemorrhagic cyst. If there are; symptoms referable to this location may consider pelvic ultrasound with Doppler; ; 3. Simple 2 cm right ovarian cyst; ; 4. Subcentimeter ileocolic nodes, likely reactive; ; ; ; ; Signed by; Ayanna Hernández MD 06/25/2016 08:52 P; Radiology Order: -US Pelvic Non-Ob Complete Test: -US Pelvic Non-Ob Complete REASON FOR EXAMINATION: Adnexal Pain r/o Torsion; Pelvic ultrasound non OB 06/25/2016; ; Indication: Adnexal pain, exclude torsion; left lower quadrant pain; ; Comparison: CT of the abdomen pelvis 06/25/2016, pelvic ultrasound 04/07/2016; ; Technique: Color-flow Doppler spectral wave Doppler baca-scale imaging was used; to evaluate the pelvis. Study was performed trans abdominally and; ; Findings: Date of last menstrual period was 1 month ago. The patient is G2, P; 0; ; Uterus measures 7.9 x 2.8 x 4.5 cm. Endometrium is 6.1 mm in thickness and; smooth.; ; Right ovary measures 3.9 x 2.5 x 2.8 cm contains tiny follicles and is normal in; appearance. Left ovary measures 4.5 x 3.2 x 3.8 cm also contains tiny follicles; and is normal in appearance. Perfusion is noted to the bilateral ovaries,; therefore no evidence of ovarian torsion.; ; There is no free fluid in the cul-de-sac.; ; The bladder measures 9.3 x 6.8 x 9.5 cm and is unremarkable in appearance; ; Impression; 1. Endometrium 6 mm in thickness and smooth.; 2. Unremarkable ovaries without masses or torsion. No free fluid in cul-de-sac; 3. Unremarkable bladder; ; ; ; ; Signed by; Ayanna Hernández MD 06/25/2016 08:50 P; Outcome: 12:12 Discharge ordered by Provider. ar2 12:21 Discharge Assessment: Patient awake, alert and oriented x 3. No cognitive and/or mb9 functional deficits noted. Patient verbalized understanding of disposition instructions. patient administered narcotics - no. The following High Risk Discharge criteria are identified: None. Discharged to home ambulatory. Condition: good Condition: stable Condition: improved. Discharge instructions given to patient, Instructed on discharge instructions, follow up and referral plans. medication usage, diet, Demonstrated understanding of instructions, medications, Pt was receptive of discharge instructions/ teaching. Prescriptions given X 3. No special radiology studies were completed. Property :Personal belongings accompany Pt. 12:23 Patient left the ED. mb9 Signatures: Dispatcher [employer] EDMS Debbie Martinez, RN RN Nathaly Cochran, SCREEN TENDER SCREEN TENDER jam1 Narciso Hannon, Reg Reg lg [place] sm5 Richelle Roberto,TRISTEN RN kr3 Basil Ferrell PA-C PA-C ar2 Chris NoelRN RN mb9 Mely Hankins Kathie klr Corrections: (The following items were deleted from the chart) 07:32 07:22 Acuity: ASHLEY Level 3 kr3 kr3 10:36 10:31 General: . dls dls Chart Complete MTDD
--- NOTE | 2016-06-27 20:18 | EDDOCDS ---
Nurse's Notes [facility] Name: Laurita Barbosa Age: 21 yrs Sex: Female : 1995 Arrival Date: 06/25/2016 Time: 07:03 Bed I4 / M4 Private MD: Diagnosis: Acute cystitis Presentation: 06/25 07:22 Presenting complaint: Patient states: burning with urination for 3 days and now blood kr3 in urine. Adult Sepsis Screening: The patient does not have new or worsening altered mentation. Patient's respiratory rate is less than 22. Systolic blood pressure is greater than 100. Patient has a qSOFA score of 0- Negative Sepsis Screen. Suicide/Homicide risk assessment- the patient denies having any suicidal and/or homicidal ideations and does not present with any other emotional, behavioral or mental health complaints. Status: Patient is not a telephone answering service operator or dependent. Transition of care: patient was not received from another setting of care. 07:22 Method Of Arrival: Walkin/Carried/Asstd kr3 07:22 Acuity: ASHLEY Level 4 kr3 Triage Assessment: 07:24 General: Appears uncomfortable, Behavior is cooperative. Pain: Pain currently is 9 out kr3 of 10 on a pain scale. HIV screening NA for this visit Offered previously. GI: Reports nausea. : Reports burning with urination hematuria urgency urinary frequency. Derm: No deficits noted. 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 Xanax 0.5 mg oral tab 2. gabapentin 300 mg Oral cap nightly 3. Prozac Unknown Oral once daily - PMHx: Anxiety; Seizure Disorder; atrial-septal aneursym; Depression; - PSHx: Appendectomy; Tonsillectomy; - Social history: Smoking status: Patient uses tobacco products, current every day smoker. No barriers to communication noted, The patient speaks fluent Setswana, Speaks appropriately for age. - Family history: Not pertinent. - : The pt / caregiver states he / she is not on anticoagulants. Home medication list is obtained from the patient. - Exposure Risk Screening:: None identified. Screenin:21 Screening information is obtained from the patient. Fall risk: No risks identified. dls Assistance ADL's: requires no assistance with activities of daily living. Abuse/DV Screen: The patient / caregiver reports he/she is: not in a situation that causes fear, pain or injury. Nutritional screening: No deficits noted. Advance Directives: Currently, there is no health care proxy. There is no active DNR order. There is no living will. There is no Power of Housecleaner Floor. Advance directive information has not previously been placed in an [facility] medical record. home support is adequate. Assessment: 08:20 General: Appears uncomfortable, unkempt, well nourished, well groomed, Behavior is dls cooperative. Neurological: No deficits noted. Neurological: No deficits noted. EENT: No deficits noted. Cardiovascular: No deficits noted. Respiratory: No deficits noted. GI: Abdomen is non- distended Bowel sounds present X 4 quads. Abd is soft Abd is tender to palpation in right lower quadrant and left lower quadrant. : No deficits noted. Derm: No deficits noted. Musculoskeletal: No deficits noted. 09:04 General: Medicated pt IV for discomfort IV bolus infusing site remains clear. dls 09:59 General: Pt states no real relief of discomfort after Toradol pt re-medicated and IV dls meds infusing via infusion pump.. 11:09 General: Pt returned from ultrasound IV meds infused pt states her pain is 9/10 dls currently.. Vital Signs: 07:31 BP 133 / 65; Pulse 83; Resp 16; Temp 96.5(O); Pulse Ox 97% on R/A; Weight 75.75 kg (R); kr3 Height 5 ft. 2 in. (157.48 cm); 09:25 BP 107 / 65; Pulse 69; Resp 18; Temp 96.5; Pulse Ox 99% ; Pain 9/10; jam1 11:09 Pain 9/10; dls 11:52 BP 126 / 65; Pulse 88; Resp 18; Temp 97.0; Pulse Ox 97% ; Pain 9/10; jam1 07:31 Body Mass Index 30.54 (75.75 kg, 157.48 cm) kr3 Vitals: 07:24 Log In Time: June 25, 2016 at 07:03. kr3 ED Course: 07:08 Patient visited by Mely Hankins. gjb 07:08 Patient moved to Waiting gjb 07:23 Triage Initiated kr3 07:31 UA Sent. kr3 07:33 Patient moved to Pre RCE kr3 07:39 Patient moved to I4 / M4 jam1 07:46 [facility] Ferrell [facility]-C [facility]. ar2 07:46 Femi Rodriguez MD is Attending Physician. ar2 07:47 Patient visited by Basil Ferrell PA-C. ar2 08:19 MED Profile Sent. dls 08:19 CBC with Diff Sent. dls 08:19 Inserted saline lock: 20 gauge in right hand and blood collected. The patient tolerated dls the procedure well. No procedures done that require assistance. Labs drawn. (by ED staff). Urine collected. Clean catch specimen. 08:21 The patient / caregiver is instructed regarding the plan of care and ED course. dls 08:38 Patient name changed from Laurita\S\[place]\S\[place]\S\ to Laurita\S\ \S\[place]. EDMS 08:41 [facility] [place] Payment Agreement was scanned into [employer] and attached to record. lg 08:46 Patient visited by Debbie Martinez RN. dls 10:00 Patient visited by Debbie Martinez RN. dls 10:31 Patient moved to Ultrasound sm5 11:01 Patient moved to I4 / M4 sm5 11:09 DUPLEX SCAN LIMITED (DOPPLER)+US Returned. dls 11:23 Patient visited by Debbie Martinez RN. dls 12:21 Discontinued IV lock intact, bleeding controlled, pressure dressing applied, No mb9 redness/swelling at site. 19:38 T-Sheet-- Draft Copy was scanned into [employer] and attached to record. klr 21:42 -US Pelvic Non-Ob Complete Returned. EDMS 21:42 CT ABD & PELVIS: No Contrast Returned. EDMS Administered Medications: 08:19 Drug: NS 0.9% 1000 ml [sodium chloride 0.9 % intravenous solution] Route: IV; Rate: dls bolus; Site: right hand; 11:09 Follow up: IV Status: Completed infusion dls 09:04 Drug: ketorolac 30 mg [ketorolac 30 mg/mL (1 mL) injection solution (1 mL)] Route: IVP; dls Site: right hand; 09:59 Drug: morphine 4 mg [morphine 4 mg/mL intravenous cartridge (1 mL)] Route: IVP; Site: dls right hand; 11:09 Follow up: Pain 02/11 Adult dls 09:59 Drug: Ciprofloxacin 400 mg [ciprofloxacin 400 mg/200 mL in 5 % dextrose intravenous dls piggyback] Route: IVPB; Rate: 200 mL/hr; Infused Over: 60 mins; Site: right hand; 11:08 Follow up: IV Status: Completed infusion dls Order Results: Lab Order: UA; SPEC'M 06/25/16 07:30 Test: APPEARANCE, URINE; Value: CLOUDY; Range: CLEAR; Abnormal: Above high normal; Status: F Test: COLOR, URINE; Value: YELLOW; Range: YELLOW; Status: F Test: PH,URINE; Value: 5.0; Range: 5.0-9.0; Units: UNITS; Status: F Test: SPECIFIC GRAVITY URINE AUTO; Value: 1.011; Range: 1.002-1.035; Status: F Test: PROTEIN, URINE AUTO; Value: NEGATIVE; Range: NEGATIVE; Units: mg/dL; Status: F Test: GLUCOSE, URINE (UA) AUTO; Value: NEGATIVE; Range: NEGATIVE; Units: mg/dL; Status: F Test: KETONE, URINE AUTO; Value: NEGATIVE; Range: NEGATIVE; Units: mg/dL; Status: F Test: UROBILINOGEN, URINE AUTO; Value: 0.2; Range: 0.0-2.0; Units: mg/dL; Status: F Test: BILIRUBIN, URINE AUTO; Value: NEGATIVE; Range: NEGATIVE; Status: F Test: NITRITE, URINE AUTO; Value: NEGATIVE; Range: NEGATIVE; Status: F Test: LEUKOCYTE ESTERASE, URINE AUTO; Value: 3+; Range: NEGATIVE; Abnormal: Above high normal; Status: F Test: BLOOD, URINE BLOOD; Value: 3+; Range: NEGATIVE; Abnormal: Above high normal; Status: F Test: WBC, URINE AUTO; Value: TNTC; Range: 0-3; Abnormal: Above high normal; Units: /HPF; Status: F Test: RBC, URINE AUTO; Value: TNTC; Range: 0-3; Abnormal: Above high normal; Units: /HPF; Status: F Test: BACTERIA, URINE AUTO; Value: NEGATIVE; Range: NEGATIVE; Status: F Test: SQUAMOUS EPITHELIAL CELL UR AU; Value: 1; Range: 0-6; Units: /HPF; Status: F Test: MUCUS, URINE; Value: SMALL; Range: NEGATIVE; Status: F Test: HYALINE CAST, URINE AUTO; Value: 0; Range: 0-1; Units: /LPF; Status: F Lab Order: Urine Culture; SPEC'M 06/25/16 07:29 Test: URINE CULTURE; Value: URINE CULTURE RESULT NO GROWTH CLINICAL SIGNIFICANCE 1 ORGANISM; Status: F Lab Order: UCG- In Lab; SPEC'M 06/25/16 07:29 Test: URINE PREG TEST; Value: NEGATIVE; Range: NEGATIVE; Status: F Lab Order: CBC with Diff; SPEC'M 06/25/16 08:17 Test: WHITE BLOOD COUNT; Value: 10.0; Range: 4.0-10.0; Units: K/mm3; Status: F Test: RED BLOOD COUNT; Value: 4.25; Range: 4.00-5.40; Units: M/mm3; Status: F Test: HEMOGLOBIN; Value: 12.4; Range: 12.0-16.0; Units: g/dl; Status: F Test: HEMATOCRIT; Value: 36.1; Range: 36.0-47.0; Units: %; Status: F Test: MEAN CORPUSCULAR VOLUME; Value: 85.0; Range: 80.0-96.0; Units: fl; Status: F Test: MEAN CORPUSCULAR HEMOGLOBIN; Value: 29.2; Range: 27.0-33.0; Units: pg; Status: F Test: MEAN CORPUSCULAR HGB CONC; Value: 34.4; Range: 32.0-36.5; Units: g/dl; Status: F Test: RED CELL DISTRIBUTION WIDTH; Value: 12.6; Range: 11.5-14.5; Units: %; Status: F Test: PLATELET COUNT, AUTOMATED; Value: 265; Range: 150-450; Units: k/mm3; Status: F Test: NEUTROPHILS %; Value: 58.6; Range: 36.0-66.0; Units: %; Status: F Test: LYMPH %; Value: 29.4; Range: 24.0-44.0; Units: %; Status: F Test: MONO %; Value: 7.0; Range: 0.0-5.0; Abnormal: Above high normal; Units: %; Status: F Test: EOS %; Value: 2.8; Range: 0.0-3.0; Units: %; Status: F Test: BASO %; Value: 0.3; Range: 0.0-1.0; Units: %; Status: F Test: LARGE UNSTAINED CELL %; Value: 1.9; Range: 0.0-4.0; Units: %; Status: F Test: NEUTROPHILS #; Value: 5.8; Range: 1.8-7.7; Units: K/mm3; Status: F Test: LYMPH #; Value: 2.9; Range: 1.5-6.5; Units: K/mm3; Status: F Test: MONO #; Value: 0.7; Range: 0.0-0.8; Units: K/mm3; Status: F Test: EOS #; Value: 0.3; Range: 0.0-0.50; Units: K/mm3; Status: F Test: BASO #; Value: 0.0; Range: 0.0-0.2; Units: K/mm3; Status: F Test: LARGE UNSTAINED CELL #; Value: 0.2; Range: 0.0-0.4; Units: K/mm3; Status: F Lab Order: MED Profile; SPEC'M 06/25/16 08:17 Test: GLUCOSE, FASTING; Value: 98; Range: 70-105; Units: MG/DL; Status: F Test: BLOOD UREA NITROGEN; Value: 10; Range: 7-18; Units: MG/DL; Status: F Test: CREATININE FOR GFR; Value: 0.62; Range: 0.55-1.02; Units: MG/DL; Status: F Test: GLOMERULAR FILTRATION RATE; Value: > 60.0; Range: >60; Status: F Test: SODIUM LEVEL; Value: 142; Range: 136-145; Units: MEQ/L; Status: F Test: POTASSIUM SERUM; Value: 4.4; Range: 3.5-5.1; Units: MEQ/L; Status: F Test: CHLORIDE LEVEL; Value: 110; Range: 98-107; Abnormal: Above high normal; Units: MEQ/L; Status: F Test: CARBON DIOXIDE LEVEL; Value: 27; Range: 21-32; Units: MEQ/L; Status: F Test: ANION GAP; Value: 5; Range: 8-16; Abnormal: Below low normal; Units: MEQ/L; Status: F Test: CALCIUM LEVEL; Value: 9.0; Range: 8.5-10.1; Units: MG/DL; Status: F Test Note: ; Units are mL/min/1.73 m2 Chronic Kidney Disease Staging per NKF: Stage I & II GFR >=60 Normal to Mildly Decreased Stage III GFR 30-59 Moderately Decreased Stage IV GFR 15-29 Severely Decreased Stage V GFR <15 Very Little GFR Left ESRD GFR <15 on SHAREHOLDER Radiology Order: CT ABD & PELVIS: No Contrast Test: CT ABD & PELVIS: No Contrast REASON FOR EXAMINATION: Renal colic; CT abdomen pelvis 06/25/2016; ; Indication renal colic, left flank pain; ; Comparison: Pelvic ultrasound 04/07/2016; ; Technique: 3 mm spiral axial sections performed through abdomen and pelvis; without contrast; ; Findings: Lung bases are clear bilaterally. Liver, spleen, pancreas,; gallbladder are normal. Adrenal glands are normal. Kidneys are without; hydronephrosis or obstructing ureteral calculi bilaterally. There is no; perinephric stranding. Stomach and small bowel are within normal limits. The; terminal ileum is normal. Appendix is surgically absent. Abdominal aorta is of; normal course and caliber. There are no pathologically enlarged retroperitoneal; nodes.; ; Bladder is normal. The uterus is unremarkable. Complex 3 cm left ovarian cystic; structure and is likely a hemorrhagic cyst. There is a small right ovarian cyst; of 2 cm diameter. There is no free fluid in cul-de-sac. There is no free air.; There is moderate retained stool throughout the colon. There are multiple small; sub centimeter ileocolic nodes.; ; Impression; 1. No hydronephrosis or obstructing ureteral calculi bilaterally; 2. Complex 3 cm left ovarian cyst, possibly a hemorrhagic cyst. If there are; symptoms referable to this location may consider pelvic ultrasound with Doppler; ; 3. Simple 2 cm right ovarian cyst; ; 4. Subcentimeter ileocolic nodes, likely reactive; ; ; ; ; Signed by; Ayanna Hernández MD 06/25/2016 08:52 P; Radiology Order: -US Pelvic Non-Ob Complete Test: -US Pelvic Non-Ob Complete REASON FOR EXAMINATION: Adnexal Pain r/o Torsion; Pelvic ultrasound non OB 06/25/2016; ; Indication: Adnexal pain, exclude torsion; left lower quadrant pain; ; Comparison: CT of the abdomen pelvis 06/25/2016, pelvic ultrasound 04/07/2016; ; Technique: Color-flow Doppler spectral wave Doppler baca-scale imaging was used; to evaluate the pelvis. Study was performed trans abdominally and; ; Findings: Date of last menstrual period was 1 month ago. The patient is G2, P; 0; ; Uterus measures 7.9 x 2.8 x 4.5 cm. Endometrium is 6.1 mm in thickness and; smooth.; ; Right ovary measures 3.9 x 2.5 x 2.8 cm contains tiny follicles and is normal in; appearance. Left ovary measures 4.5 x 3.2 x 3.8 cm also contains tiny follicles; and is normal in appearance. Perfusion is noted to the bilateral ovaries,; therefore no evidence of ovarian torsion.; ; There is no free fluid in the cul-de-sac.; ; The bladder measures 9.3 x 6.8 x 9.5 cm and is unremarkable in appearance; ; Impression; 1. Endometrium 6 mm in thickness and smooth.; 2. Unremarkable ovaries without masses or torsion. No free fluid in cul-de-sac; 3. Unremarkable bladder; ; ; ; ; Signed by; Ayanna Hernández MD 06/25/2016 08:50 P; Outcome: 12:12 Discharge ordered by Provider. ar2 12:21 Discharge Assessment: Patient awake, alert and oriented x 3. No cognitive and/or mb9 functional deficits noted. Patient verbalized understanding of disposition instructions. patient administered narcotics - no. The following High Risk Discharge criteria are identified: None. Discharged to home ambulatory. Condition: good Condition: stable Condition: improved. Discharge instructions given to patient, Instructed on discharge instructions, follow up and referral plans. medication usage, diet, Demonstrated understanding of instructions, medications, Pt was receptive of discharge instructions/ teaching. Prescriptions given X 3. No special radiology studies were completed. Property :Personal belongings accompany Pt. 12:23 Patient left the ED. mb9 Signatures: Dispatcher [employer] EDMS Debbie Martinez, RN RN Nathaly Cochran, [employer] PILOT [employer] PIL[employer] jam1 Narciso Hannon, Reg Reg lg [place] sm5 Richelle Roberto,TRISTEN RN kr3 Basil Ferrell PA-C PA-C ar2 Chris NoelRN RN mb9 Mely Hankins Kathie klr Corrections: (The following items were deleted from the chart) 07:32 07:22 Acuity: ASHLEY Level 3 kr3 kr3 10:36 10:31 General: . dls dls MTDD
--- NOTE | 2016-06-27 20:18 | EDDOCDS ---
Physician Documentation [facility] Name: Laurita Barbosa Age: 21 yrs Sex: Female : 1995 Arrival Date: 06/25/2016 Time: 07:03 Bed I4 / M4 Private MD: Disposition: 06/25/16 12:12 Discharged to Home/Self Care. Impression: Acute cystitis. - Condition is Stable. - Discharge Instructions: Urinary Tract Infection. - Prescriptions for Cipro 500 mg Oral Tablet - take 1 tablet by ORAL route 2 times per day; 6 tablet. Naprosyn 500 mg Oral Tablet - take 1 tablet by ORAL route 2 times per day take with food; 30 tablet. Pyridium 200 mg Oral Tablet - take 1 tablet by ORAL route every 8 hours for 3 days; 9 tablet. - Medication Reconciliation, Local Pharmacy Hours form. - Follow up: Private Physician; When: 2 - 3 days; Reason: Recheck today's complaints. Follow up: Emergency Department; When: As needed; Reason: Fever > 102F, Worsening of conditions. - Problem is new. - Symptoms have improved. Historical: - Allergies: Bees; - Home Meds: 1. Xanax 0.5 mg oral tab 2. gabapentin 300 mg Oral cap nightly 3. Prozac Unknown Oral once daily - PMHx: Anxiety; Seizure Disorder; atrial-septal aneursym; Depression; - PSHx: Appendectomy; Tonsillectomy; - Social history: Smoking status: Patient uses tobacco products, current every day smoker. No barriers to communication noted, The patient speaks fluent Nepali, Speaks appropriately for age. - Family history: Not pertinent. - : The pt / caregiver states he / she is not on anticoagulants. Home medication list is obtained from the patient. - Exposure Risk Screening:: None identified. 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 2 in. (157.48 cm); 09:25 BP 107 / 65; Pulse 69; Resp 18; Temp 96.5; Pulse Ox 99% ; Pain 9/10; jam1 11:09 Pain 9/10; dls 11:52 BP 126 / 65; Pulse 88; Resp 18; Temp 97.0; Pulse Ox 97% ; Pain 9/10; jam1 07:31 Body Mass Index 30.54 (75.75 kg, 157.48 cm) kr3 MDM: 07:27 UA Ordered. EDMS 07:30 Urine Culture Ordered. EDMS 07:56 Financial registration complete. lg 07:56 IV Saline Lock ordered. ar2 07:56 NS 0.9% 1000 ml IV at bolus once ordered. ar2 07:57 UCG- In Lab Ordered. EDMS 07:57 CBC with Diff Ordered. EDMS 07:57 MED Profile Ordered. EDMS 08:19 UA Reviewed. ar2 08:19 UCG- In Lab Reviewed. ar2 08:37 CBC with Diff Reviewed. ar2 08:41 [facility] Payment Agreement was scanned into [employer] and attached to record. lg 08:50 ketorolac 30 mg IVP once ordered. ar2 08:50 MED Profile Reviewed. ar2 08:52 CT ABD & PELVIS: No Contrast Ordered. EDMS 09:38 -US Pelvic Non-Ob Complete Ordered. EDMS 09:38 DUPLEX SCAN LIMITED (DOPPLER)+US Ordered. EDMS 09:39 morphine 4 mg IVP once ordered. ar2 09:39 Ciprofloxacin 400 mg IVPB at 200 mL/hr once over 60 mins ordered. ar2 19:38 T-Sheet-- Draft Copy was scanned into [employer] and attached to record. klr Administered Medications: 08:19 Drug: NS 0.9% 1000 ml [sodium chloride 0.9 % intravenous solution] Route: IV; Rate: dls bolus; Site: right hand; 11:09 Follow up: IV Status: Completed infusion dls 09:04 Drug: ketorolac 30 mg [ketorolac 30 mg/mL (1 mL) injection solution (1 mL)] Route: IVP; dls Site: right hand; 09:59 Drug: morphine 4 mg [morphine 4 mg/mL intravenous cartridge (1 mL)] Route: IVP; Site: dls right hand; 11:09 Follow up: Pain 9/10 Adult dls 09:59 Drug: Ciprofloxacin 400 mg [ciprofloxacin 400 mg/200 mL in 5 % dextrose intravenous dls piggyback] Route: IVPB; Rate: 200 mL/hr; Infused Over: 60 mins; Site: right hand; 11:08 Follow up: IV Status: Completed infusion dls Addendum: 06/27/2016 20:16 Radiology Callback: A certified letter will be sent to the patient / guardian. to pt re ml formal read of ct abd/p. please see report needs fu. no pcp documented mgl. Signatures: Dispatcher [employer] Vineet Torres MD MD ml Debbie Martinez RN RN dls Narciso Hannon, Reg Reg lg Richelle Roberto RN RN kr3 Basil Ferrell, PADouglas PA-C ar2 Chris Noel RN RN mb9 Fallon Braswell The chart was reviewed and I authenticate all verbal orders and agree with the evaluation and treatment provided.Attachments: 06/25 08:41 [facility] Payment Agreement lg 19:38 T-Sheet-- Draft Copy klr DAVIDD
--- NOTE | 2016-06-27 20:18 | EDDOCDS ---
Physician Documentation [facility] Name: Laurita Barbosa Age: 21 yrs Sex: Female : 1995 Arrival Date: 06/25/2016 Time: 07:03 Bed I4 / M4 Private MD: Disposition: 06/25/16 12:12 Discharged to Home/Self Care. Impression: Acute cystitis. - Condition is Stable. - Discharge Instructions: Urinary Tract Infection. - Prescriptions for Cipro 500 mg Oral Tablet - take 1 tablet by ORAL route 2 times per day; 6 tablet. Naprosyn 500 mg Oral Tablet - take 1 tablet by ORAL route 2 times per day take with food; 30 tablet. Pyridium 200 mg Oral Tablet - take 1 tablet by ORAL route every 8 hours for 3 days; 9 tablet. - Medication Reconciliation, Local Pharmacy Hours form. - Follow up: Private Physician; When: 2 - 3 days; Reason: Recheck today's complaints. Follow up: Emergency Department; When: As needed; Reason: Fever > 102F, Worsening of conditions. - Problem is new. - Symptoms have improved. Historical: - Allergies: Bees; - Home Meds: 1. Xanax 0.5 mg oral tab 2. gabapentin 300 mg Oral cap nightly 3. Prozac Unknown Oral once daily - PMHx: Anxiety; Seizure Disorder; atrial-septal aneursym; Depression; - PSHx: Appendectomy; Tonsillectomy; - Social history: Smoking status: Patient uses tobacco products, current every day smoker. No barriers to communication noted, The patient speaks fluent Faroese, Speaks appropriately for age. - Family history: Not pertinent. - : The pt / caregiver states he / she is not on anticoagulants. Home medication list is obtained from the patient. - Exposure Risk Screening:: None identified. 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 2 in. (157.48 cm); 09:25 BP 107 / 65; Pulse 69; Resp 18; Temp 96.5; Pulse Ox 99% ; Pain 9/10; jam1 11:09 Pain 9/10; dls 11:52 BP 126 / 65; Pulse 88; Resp 18; Temp 97.0; Pulse Ox 97% ; Pain 9/10; jam1 07:31 Body Mass Index 30.54 (75.75 kg, 157.48 cm) kr3 MDM: 07:27 UA Ordered. EDMS 07:30 Urine Culture Ordered. EDMS 07:56 Financial registration complete. lg 07:56 IV Saline Lock ordered. ar2 07:56 NS 0.9% 1000 ml IV at bolus once ordered. ar2 07:57 UCG- In Lab Ordered. EDMS 07:57 CBC with Diff Ordered. EDMS 07:57 MED Profile Ordered. EDMS 08:19 UA Reviewed. ar2 08:19 UCG- In Lab Reviewed. ar2 08:37 CBC with Diff Reviewed. ar2 08:41 [facility] [place] Payment Agreement was scanned into [employer] and attached to record. lg 08:50 ketorolac 30 mg IVP once ordered. ar2 08:50 MED Profile Reviewed. ar2 08:52 CT ABD & PELVIS: No Contrast Ordered. EDMS 09:38 -US Pelvic Non-Ob Complete Ordered. EDMS 09:38 DUPLEX SCAN LIMITED (DOPPLER)+US Ordered. EDMS 09:39 morphine 4 mg IVP once ordered. ar2 09:39 Ciprofloxacin 400 mg IVPB at 200 mL/hr once over 60 mins ordered. ar2 19:38 T-Sheet-- Draft Copy was scanned into [employer] and attached to record. klr Administered Medications: 08:19 Drug: NS 0.9% 1000 ml [sodium chloride 0.9 % intravenous solution] Route: IV; Rate: dls bolus; Site: right hand; 11:09 Follow up: IV Status: Completed infusion dls 09:04 Drug: ketorolac 30 mg [ketorolac 30 mg/mL (1 mL) injection solution (1 mL)] Route: IVP; dls Site: right hand; 09:59 Drug: morphine 4 mg [morphine 4 mg/mL intravenous cartridge (1 mL)] Route: IVP; Site: dls right hand; 11:09 Follow up: Pain 9/10 Adult dls 09:59 Drug: Ciprofloxacin 400 mg [ciprofloxacin 400 mg/200 mL in 5 % dextrose intravenous dls piggyback] Route: IVPB; Rate: 200 mL/hr; Infused Over: 60 mins; Site: right hand; 11:08 Follow up: IV Status: Completed infusion dls Addendum: 06/27/2016 20:16 Radiology Callback: A certified letter will be sent to the patient / guardian. to pt re ml formal read of ct abd/p. please see report needs fu. no pcp documented mgl. Signatures: Dispatcher [employer] Vineet Torres MD MD ml Debbie Martinez RN RN dls Narciso Hannon, Reg Reg lg Richelle Roberto RN RN kr3 Basil Ferrell, PADouglas PA-C ar2 Chris Noel RN RN mb9 Fallon Braswell The chart was reviewed and I authenticate all verbal orders and agree with the evaluation and treatment provided.Attachments: 06/25 08:41 [facility] [place] Payment Agreement lg 19:38 T-Sheet-- Draft Copy klr DAVIDD
--- NOTE | 2016-06-27 20:19 | EDDOCDS ---
Physician Documentation [facility] Name: Laurita Barbosa Age: 21 yrs Sex: Female : 1995 Arrival Date: 06/25/2016 Time: 07:03 Bed I4 / M4 Private MD: Disposition: 06/25/16 12:12 Discharged to Home/Self Care. Impression: Acute cystitis. - Condition is Stable. - Discharge Instructions: Urinary Tract Infection. - Prescriptions for Cipro 500 mg Oral Tablet - take 1 tablet by ORAL route 2 times per day; 6 tablet. Naprosyn 500 mg Oral Tablet - take 1 tablet by ORAL route 2 times per day take with food; 30 tablet. Pyridium 200 mg Oral Tablet - take 1 tablet by ORAL route every 8 hours for 3 days; 9 tablet. - Medication Reconciliation, Local Pharmacy Hours form. - Follow up: Private Physician; When: 2 - 3 days; Reason: Recheck today's complaints. Follow up: Emergency Department; When: As needed; Reason: Fever > 102F, Worsening of conditions. - Problem is new. - Symptoms have improved. Historical: - Allergies: Bees; - Home Meds: 1. Xanax 0.5 mg oral tab 2. gabapentin 300 mg Oral cap nightly 3. Prozac Unknown Oral once daily - PMHx: Anxiety; Seizure Disorder; atrial-septal aneursym; Depression; - PSHx: Appendectomy; Tonsillectomy; - Social history: Smoking status: Patient uses tobacco products, current every day smoker. No barriers to communication noted, The patient speaks fluent Icelandic, Speaks appropriately for age. - Family history: Not pertinent. - : The pt / caregiver states he / she is not on anticoagulants. Home medication list is obtained from the patient. - Exposure Risk Screening:: None identified. 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 2 in. (157.48 cm); 09:25 BP 107 / 65; Pulse 69; Resp 18; Temp 96.5; Pulse Ox 99% ; Pain 9/10; jam1 11:09 Pain 9/10; dls 11:52 BP 126 / 65; Pulse 88; Resp 18; Temp 97.0; Pulse Ox 97% ; Pain 9/10; jam1 07:31 Body Mass Index 30.54 (75.75 kg, 157.48 cm) kr3 MDM: 07:27 UA Ordered. EDMS 07:30 Urine Culture Ordered. EDMS 07:56 Financial registration complete. lg 07:56 IV Saline Lock ordered. ar2 07:56 NS 0.9% 1000 ml IV at bolus once ordered. ar2 07:57 UCG- In Lab Ordered. EDMS 07:57 CBC with Diff Ordered. EDMS 07:57 MED Profile Ordered. EDMS 08:19 UA Reviewed. ar2 08:19 UCG- In Lab Reviewed. ar2 08:37 CBC with Diff Reviewed. ar2 08:41 [place] [place] Payment Agreement was scanned into [employer] and attached to record. lg 08:50 ketorolac 30 mg IVP once ordered. ar2 08:50 MED Profile Reviewed. ar2 08:52 CT ABD & PELVIS: No Contrast Ordered. EDMS 09:38 -US Pelvic Non-Ob Complete Ordered. EDMS 09:38 DUPLEX SCAN LIMITED (DOPPLER)+US Ordered. EDMS 09:39 morphine 4 mg IVP once ordered. ar2 09:39 Ciprofloxacin 400 mg IVPB at 200 mL/hr once over 60 mins ordered. ar2 19:38 T-Sheet-- Draft Copy was scanned into [employer] and attached to record. klr Administered Medications: 08:19 Drug: NS 0.9% 1000 ml [sodium chloride 0.9 % intravenous solution] Route: IV; Rate: dls bolus; Site: right hand; 11:09 Follow up: IV Status: Completed infusion dls 09:04 Drug: ketorolac 30 mg [ketorolac 30 mg/mL (1 mL) injection solution (1 mL)] Route: IVP; dls Site: right hand; 09:59 Drug: morphine 4 mg [morphine 4 mg/mL intravenous cartridge (1 mL)] Route: IVP; Site: dls right hand; 11:09 Follow up: Pain 9/10 Adult dls 09:59 Drug: Ciprofloxacin 400 mg [ciprofloxacin 400 mg/200 mL in 5 % dextrose intravenous dls piggyback] Route: IVPB; Rate: 200 mL/hr; Infused Over: 60 mins; Site: right hand; 11:08 Follow up: IV Status: Completed infusion dls Addendum: 06/27/2016 20:16 Radiology Callback: A certified letter will be sent to the patient / guardian. to pt re ml formal read of ct abd/p. please see report needs fu. no pcp documented mgl. Signatures: Dispatcher [employer] Vineet Torres MD MD ml Debbie Martinez RN RN dls Narciso Hannon, Reg Reg lg Richelle Roberto RN RN kr3 Basil Ferrell, PADouglas PA-Chas ar2 Chris Noel RN RN mb9 Fallon Braswell The chart was reviewed and I authenticate all verbal orders and agree with the evaluation and treatment provided.Attachments: 06/25 08:41 [facility] Payment Agreement lg 19:38 T-Sheet-- Draft Copy klr Chart Complete MTDD
--- NOTE | 2016-06-27 20:19 | EDDOCDS ---
Physician Documentation [facility] Name: Laurita Barbosa Age: 21 yrs Sex: Female : 1995 Arrival Date: 06/25/2016 Time: 07:03 Bed I4 / M4 Private MD: Disposition: 06/25/16 12:12 Discharged to Home/Self Care. Impression: Acute cystitis. - Condition is Stable. - Discharge Instructions: Urinary Tract Infection. - Prescriptions for Cipro 500 mg Oral Tablet - take 1 tablet by ORAL route 2 times per day; 6 tablet. Naprosyn 500 mg Oral Tablet - take 1 tablet by ORAL route 2 times per day take with food; 30 tablet. Pyridium 200 mg Oral Tablet - take 1 tablet by ORAL route every 8 hours for 3 days; 9 tablet. - Medication Reconciliation, Local Pharmacy Hours form. - Follow up: Private Physician; When: 2 - 3 days; Reason: Recheck today's complaints. Follow up: Emergency Department; When: As needed; Reason: Fever > 102F, Worsening of conditions. - Problem is new. - Symptoms have improved. Historical: - Allergies: Bees; - Home Meds: 1. Xanax 0.5 mg oral tab 2. gabapentin 300 mg Oral cap nightly 3. Prozac Unknown Oral once daily - PMHx: Anxiety; Seizure Disorder; atrial-septal aneursym; Depression; - PSHx: Appendectomy; Tonsillectomy; - Social history: Smoking status: Patient uses tobacco products, current every day smoker. No barriers to communication noted, The patient speaks fluent French, Speaks appropriately for age. - Family history: Not pertinent. - : The pt / caregiver states he / she is not on anticoagulants. Home medication list is obtained from the patient. - Exposure Risk Screening:: None identified. 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 2 in. (157.48 cm); 09:25 BP 107 / 65; Pulse 69; Resp 18; Temp 96.5; Pulse Ox 99% ; Pain 9/10; jam1 11:09 Pain 9/10; dls 11:52 BP 126 / 65; Pulse 88; Resp 18; Temp 97.0; Pulse Ox 97% ; Pain 9/10; jam1 07:31 Body Mass Index 30.54 (75.75 kg, 157.48 cm) kr3 MDM: 07:27 UA Ordered. EDMS 07:30 Urine Culture Ordered. EDMS 07:56 Financial registration complete. lg 07:56 IV Saline Lock ordered. ar2 07:56 NS 0.9% 1000 ml IV at bolus once ordered. ar2 07:57 UCG- In Lab Ordered. EDMS 07:57 CBC with Diff Ordered. EDMS 07:57 MED Profile Ordered. EDMS 08:19 UA Reviewed. ar2 08:19 UCG- In Lab Reviewed. ar2 08:37 CBC with Diff Reviewed. ar2 08:41 [facility] [place] Payment Agreement was scanned into [employer] and attached to record. lg 08:50 ketorolac 30 mg IVP once ordered. ar2 08:50 MED Profile Reviewed. ar2 08:52 CT ABD & PELVIS: No Contrast Ordered. EDMS 09:38 -US Pelvic Non-Ob Complete Ordered. EDMS 09:38 DUPLEX SCAN LIMITED (DOPPLER)+US Ordered. EDMS 09:39 morphine 4 mg IVP once ordered. ar2 09:39 Ciprofloxacin 400 mg IVPB at 200 mL/hr once over 60 mins ordered. ar2 19:38 T-Sheet-- Draft Copy was scanned into [employer] and attached to record. klr Administered Medications: 08:19 Drug: NS 0.9% 1000 ml [sodium chloride 0.9 % intravenous solution] Route: IV; Rate: dls bolus; Site: right hand; 11:09 Follow up: IV Status: Completed infusion dls 09:04 Drug: ketorolac 30 mg [ketorolac 30 mg/mL (1 mL) injection solution (1 mL)] Route: IVP; dls Site: right hand; 09:59 Drug: morphine 4 mg [morphine 4 mg/mL intravenous cartridge (1 mL)] Route: IVP; Site: dls right hand; 11:09 Follow up: Pain 9/10 Adult dls 09:59 Drug: Ciprofloxacin 400 mg [ciprofloxacin 400 mg/200 mL in 5 % dextrose intravenous dls piggyback] Route: IVPB; Rate: 200 mL/hr; Infused Over: 60 mins; Site: right hand; 11:08 Follow up: IV Status: Completed infusion dls Addendum: 06/27/2016 20:16 Radiology Callback: A certified letter will be sent to the patient / guardian. to pt re ml formal read of ct abd/p. please see report needs fu. no pcp documented mgl. Signatures: Dispatcher [employer] Vineet Torres MD MD ml Debbie Martinez RN RN dls Narciso Hannon, Reg Reg lg Richelle Roberto RN RN kr3 Basil Ferrell, PADouglas PA-Chas ar2 Chris Noel RN RN mb9 Fallon Braswell The chart was reviewed and I authenticate all verbal orders and agree with the evaluation and treatment provided.Attachments: 06/25 08:41 [facility] [place] Payment Agreement lg 19:38 T-Sheet-- Draft Copy klr Chart Complete MTDD
--- NOTE | 2016-06-27 20:19 | EDDOCDS ---
Nurse's Notes [facility] Name: Laurita Barbosa Age: 21 yrs Sex: Female : 1995 Arrival Date: 06/25/2016 Time: 07:03 Bed I4 / M4 Private MD: Diagnosis: Acute cystitis Presentation: 06/25 07:22 Presenting complaint: Patient states: burning with urination for 3 days and now blood kr3 in urine. Adult Sepsis Screening: The patient does not have new or worsening altered mentation. Patient's respiratory rate is less than 22. Systolic blood pressure is greater than 100. Patient has a qSOFA score of 0- Negative Sepsis Screen. Suicide/Homicide risk assessment- the patient denies having any suicidal and/or homicidal ideations and does not present with any other emotional, behavioral or mental health complaints. Status: Patient is not a escort service attendant or dependent. Transition of care: patient was not received from another setting of care. 07:22 Method Of Arrival: Walkin/Carried/Asstd kr3 07:22 Acuity: ASHLEY Level 4 kr3 Triage Assessment: 07:24 General: Appears uncomfortable, Behavior is cooperative. Pain: Pain currently is 9 out kr3 of 10 on a pain scale. HIV screening NA for this visit Offered previously. GI: Reports nausea. : Reports burning with urination hematuria urgency urinary frequency. Derm: No deficits noted. 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 Xanax 0.5 mg oral tab 2. gabapentin 300 mg Oral cap nightly 3. Prozac Unknown Oral once daily - PMHx: Anxiety; Seizure Disorder; atrial-septal aneursym; Depression; - PSHx: Appendectomy; Tonsillectomy; - Social history: Smoking status: Patient uses tobacco products, current every day smoker. No barriers to communication noted, The patient speaks fluent Irish, Speaks appropriately for age. - Family history: Not pertinent. - : The pt / caregiver states he / she is not on anticoagulants. Home medication list is obtained from the patient. - Exposure Risk Screening:: None identified. Screenin:21 Screening information is obtained from the patient. Fall risk: No risks identified. dls Assistance ADL's: requires no assistance with activities of daily living. Abuse/DV Screen: The patient / caregiver reports he/she is: not in a situation that causes fear, pain or injury. Nutritional screening: No deficits noted. Advance Directives: Currently, there is no health care proxy. There is no active DNR order. There is no living will. There is no Power of Flower Buncher Or Picker. Advance directive information has not previously been placed in an [facility] medical record. home support is adequate. Assessment: 08:20 General: Appears uncomfortable, unkempt, well nourished, well groomed, Behavior is dls cooperative. Neurological: No deficits noted. Neurological: No deficits noted. EENT: No deficits noted. Cardiovascular: No deficits noted. Respiratory: No deficits noted. GI: Abdomen is non- distended Bowel sounds present X 4 quads. Abd is soft Abd is tender to palpation in right lower quadrant and left lower quadrant. : No deficits noted. Derm: No deficits noted. Musculoskeletal: No deficits noted. 09:04 General: Medicated pt IV for discomfort IV bolus infusing site remains clear. dls 09:59 General: Pt states no real relief of discomfort after Toradol pt re-medicated and IV dls meds infusing via infusion pump.. 11:09 General: Pt returned from ultrasound IV meds infused pt states her pain is 9/10 dls currently.. Vital Signs: 07:31 BP 133 / 65; Pulse 83; Resp 16; Temp 96.5(O); Pulse Ox 97% on R/A; Weight 75.75 kg (R); kr3 Height 5 ft. 2 in. (157.48 cm); 09:25 BP 107 / 65; Pulse 69; Resp 18; Temp 96.5; Pulse Ox 99% ; Pain 9/10; jam1 11:09 Pain 9/10; dls 11:52 BP 126 / 65; Pulse 88; Resp 18; Temp 97.0; Pulse Ox 97% ; Pain 9/10; jam1 07:31 Body Mass Index 30.54 (75.75 kg, 157.48 cm) kr3 Vitals: 07:24 Log In Time: June 25, 2016 at 07:03. kr3 ED Course: 07:08 Patient visited by Mely Hankins. gjb 07:08 Patient moved to Waiting gjb 07:23 Triage Initiated kr3 07:31 UA Sent. kr3 07:33 Patient moved to Pre RCE kr3 07:39 Patient moved to I4 / M4 jam1 07:46 [facility] ar2 07:46 Femi Rodriguez MD is Attending Physician. ar2 07:47 Patient visited by Basil Ferrell PA-C. ar2 08:19 MED Profile Sent. dls 08:19 CBC with Diff Sent. dls 08:19 Inserted saline lock: 20 gauge in right hand and blood collected. The patient tolerated dls the procedure well. No procedures done that require assistance. Labs drawn. (by ED staff). Urine collected. Clean catch specimen. 08:21 The patient / caregiver is instructed regarding the plan of care and ED course. dls 08:38 Patient name changed from Laurita\S\Santos\S\Phoenix\S\ to Laurita\S\ \S\[place]. EDMS 08:41 [facility] [place] Payment Agreement was scanned into [employer] and attached to record. lg 08:46 Patient visited by Debbie Martinez RN. dls 10:00 Patient visited by Debbie Martinez RN. dls 10:31 Patient moved to Ultrasound sm5 11:01 Patient moved to I4 / M4 sm5 11:09 DUPLEX SCAN LIMITED (DOPPLER)+US Returned. dls 11:23 Patient visited by Debbie Martinez RN. dls 12:21 Discontinued IV lock intact, bleeding controlled, pressure dressing applied, No mb9 redness/swelling at site. 19:38 T-Sheet-- Draft Copy was scanned into [employer] and attached to record. klr 21:42 -US Pelvic Non-Ob Complete Returned. EDMS 21:42 CT ABD & PELVIS: No Contrast Returned. EDMS Administered Medications: 08:19 Drug: NS 0.9% 1000 ml [sodium chloride 0.9 % intravenous solution] Route: IV; Rate: dls bolus; Site: right hand; 11:09 Follow up: IV Status: Completed infusion dls 09:04 Drug: ketorolac 30 mg [ketorolac 30 mg/mL (1 mL) injection solution (1 mL)] Route: IVP; dls Site: right hand; 09:59 Drug: morphine 4 mg [morphine 4 mg/mL intravenous cartridge (1 mL)] Route: IVP; Site: dls right hand; 11:09 Follow up: Pain 02/11 Adult dls 09:59 Drug: Ciprofloxacin 400 mg [ciprofloxacin 400 mg/200 mL in 5 % dextrose intravenous dls piggyback] Route: IVPB; Rate: 200 mL/hr; Infused Over: 60 mins; Site: right hand; 11:08 Follow up: IV Status: Completed infusion dls Order Results: Lab Order: UA; SPEC'M 06/25/16 07:30 Test: APPEARANCE, URINE; Value: CLOUDY; Range: CLEAR; Abnormal: Above high normal; Status: F Test: COLOR, URINE; Value: YELLOW; Range: YELLOW; Status: F Test: PH,URINE; Value: 5.0; Range: 5.0-9.0; Units: UNITS; Status: F Test: SPECIFIC GRAVITY URINE AUTO; Value: 1.011; Range: 1.002-1.035; Status: F Test: PROTEIN, URINE AUTO; Value: NEGATIVE; Range: NEGATIVE; Units: mg/dL; Status: F Test: GLUCOSE, URINE (UA) AUTO; Value: NEGATIVE; Range: NEGATIVE; Units: mg/dL; Status: F Test: KETONE, URINE AUTO; Value: NEGATIVE; Range: NEGATIVE; Units: mg/dL; Status: F Test: UROBILINOGEN, URINE AUTO; Value: 0.2; Range: 0.0-2.0; Units: mg/dL; Status: F Test: BILIRUBIN, URINE AUTO; Value: NEGATIVE; Range: NEGATIVE; Status: F Test: NITRITE, URINE AUTO; Value: NEGATIVE; Range: NEGATIVE; Status: F Test: LEUKOCYTE ESTERASE, URINE AUTO; Value: 3+; Range: NEGATIVE; Abnormal: Above high normal; Status: F Test: BLOOD, URINE BLOOD; Value: 3+; Range: NEGATIVE; Abnormal: Above high normal; Status: F Test: WBC, URINE AUTO; Value: TNTC; Range: 0-3; Abnormal: Above high normal; Units: /HPF; Status: F Test: RBC, URINE AUTO; Value: TNTC; Range: 0-3; Abnormal: Above high normal; Units: /HPF; Status: F Test: BACTERIA, URINE AUTO; Value: NEGATIVE; Range: NEGATIVE; Status: F Test: SQUAMOUS EPITHELIAL CELL UR AU; Value: 1; Range: 0-6; Units: /HPF; Status: F Test: MUCUS, URINE; Value: SMALL; Range: NEGATIVE; Status: F Test: HYALINE CAST, URINE AUTO; Value: 0; Range: 0-1; Units: /LPF; Status: F Lab Order: Urine Culture; SPEC'M 06/25/16 07:29 Test: URINE CULTURE; Value: URINE CULTURE RESULT NO GROWTH CLINICAL SIGNIFICANCE 1 ORGANISM; Status: F Lab Order: UCG- In Lab; SPEC'M 06/25/16 07:29 Test: URINE PREG TEST; Value: NEGATIVE; Range: NEGATIVE; Status: F Lab Order: CBC with Diff; SPEC'M 06/25/16 08:17 Test: WHITE BLOOD COUNT; Value: 10.0; Range: 4.0-10.0; Units: K/mm3; Status: F Test: RED BLOOD COUNT; Value: 4.25; Range: 4.00-5.40; Units: M/mm3; Status: F Test: HEMOGLOBIN; Value: 12.4; Range: 12.0-16.0; Units: g/dl; Status: F Test: HEMATOCRIT; Value: 36.1; Range: 36.0-47.0; Units: %; Status: F Test: MEAN CORPUSCULAR VOLUME; Value: 85.0; Range: 80.0-96.0; Units: fl; Status: F Test: MEAN CORPUSCULAR HEMOGLOBIN; Value: 29.2; Range: 27.0-33.0; Units: pg; Status: F Test: MEAN CORPUSCULAR HGB CONC; Value: 34.4; Range: 32.0-36.5; Units: g/dl; Status: F Test: RED CELL DISTRIBUTION WIDTH; Value: 12.6; Range: 11.5-14.5; Units: %; Status: F Test: PLATELET COUNT, AUTOMATED; Value: 265; Range: 150-450; Units: k/mm3; Status: F Test: NEUTROPHILS %; Value: 58.6; Range: 36.0-66.0; Units: %; Status: F Test: LYMPH %; Value: 29.4; Range: 24.0-44.0; Units: %; Status: F Test: MONO %; Value: 7.0; Range: 0.0-5.0; Abnormal: Above high normal; Units: %; Status: F Test: EOS %; Value: 2.8; Range: 0.0-3.0; Units: %; Status: F Test: BASO %; Value: 0.3; Range: 0.0-1.0; Units: %; Status: F Test: LARGE UNSTAINED CELL %; Value: 1.9; Range: 0.0-4.0; Units: %; Status: F Test: NEUTROPHILS #; Value: 5.8; Range: 1.8-7.7; Units: K/mm3; Status: F Test: LYMPH #; Value: 2.9; Range: 1.5-6.5; Units: K/mm3; Status: F Test: MONO #; Value: 0.7; Range: 0.0-0.8; Units: K/mm3; Status: F Test: EOS #; Value: 0.3; Range: 0.0-0.50; Units: K/mm3; Status: F Test: BASO #; Value: 0.0; Range: 0.0-0.2; Units: K/mm3; Status: F Test: LARGE UNSTAINED CELL #; Value: 0.2; Range: 0.0-0.4; Units: K/mm3; Status: F Lab Order: MED Profile; SPEC'M 06/25/16 08:17 Test: GLUCOSE, FASTING; Value: 98; Range: 70-105; Units: MG/DL; Status: F Test: BLOOD UREA NITROGEN; Value: 10; Range: 7-18; Units: MG/DL; Status: F Test: CREATININE FOR GFR; Value: 0.62; Range: 0.55-1.02; Units: MG/DL; Status: F Test: GLOMERULAR FILTRATION RATE; Value: > 60.0; Range: >60; Status: F Test: SODIUM LEVEL; Value: 142; Range: 136-145; Units: MEQ/L; Status: F Test: POTASSIUM SERUM; Value: 4.4; Range: 3.5-5.1; Units: MEQ/L; Status: F Test: CHLORIDE LEVEL; Value: 110; Range: 98-107; Abnormal: Above high normal; Units: MEQ/L; Status: F Test: CARBON DIOXIDE LEVEL; Value: 27; Range: 21-32; Units: MEQ/L; Status: F Test: ANION GAP; Value: 5; Range: 8-16; Abnormal: Below low normal; Units: MEQ/L; Status: F Test: CALCIUM LEVEL; Value: 9.0; Range: 8.5-10.1; Units: MG/DL; Status: F Test Note: ; Units are mL/min/1.73 m2 Chronic Kidney Disease Staging per NKF: Stage I & II GFR >=60 Normal to Mildly Decreased Stage III GFR 30-59 Moderately Decreased Stage IV GFR 15-29 Severely Decreased Stage V GFR <15 Very Little GFR Left ESRD GFR <15 on VEGETABLE GROWER Radiology Order: CT ABD & PELVIS: No Contrast Test: CT ABD & PELVIS: No Contrast REASON FOR EXAMINATION: Renal colic; CT abdomen pelvis 06/25/2016; ; Indication renal colic, left flank pain; ; Comparison: Pelvic ultrasound 04/07/2016; ; Technique: 3 mm spiral axial sections performed through abdomen and pelvis; without contrast; ; Findings: Lung bases are clear bilaterally. Liver, spleen, pancreas,; gallbladder are normal. Adrenal glands are normal. Kidneys are without; hydronephrosis or obstructing ureteral calculi bilaterally. There is no; perinephric stranding. Stomach and small bowel are within normal limits. The; terminal ileum is normal. Appendix is surgically absent. Abdominal aorta is of; normal course and caliber. There are no pathologically enlarged retroperitoneal; nodes.; ; Bladder is normal. The uterus is unremarkable. Complex 3 cm left ovarian cystic; structure and is likely a hemorrhagic cyst. There is a small right ovarian cyst; of 2 cm diameter. There is no free fluid in cul-de-sac. There is no free air.; There is moderate retained stool throughout the colon. There are multiple small; sub centimeter ileocolic nodes.; ; Impression; 1. No hydronephrosis or obstructing ureteral calculi bilaterally; 2. Complex 3 cm left ovarian cyst, possibly a hemorrhagic cyst. If there are; symptoms referable to this location may consider pelvic ultrasound with Doppler; ; 3. Simple 2 cm right ovarian cyst; ; 4. Subcentimeter ileocolic nodes, likely reactive; ; ; ; ; Signed by; Ayanna Hernández MD 06/25/2016 08:52 P; Radiology Order: -US Pelvic Non-Ob Complete Test: -US Pelvic Non-Ob Complete REASON FOR EXAMINATION: Adnexal Pain r/o Torsion; Pelvic ultrasound non OB 06/25/2016; ; Indication: Adnexal pain, exclude torsion; left lower quadrant pain; ; Comparison: CT of the abdomen pelvis 06/25/2016, pelvic ultrasound 04/07/2016; ; Technique: Color-flow Doppler spectral wave Doppler baca-scale imaging was used; to evaluate the pelvis. Study was performed trans abdominally and; ; Findings: Date of last menstrual period was 1 month ago. The patient is G2, P; 0; ; Uterus measures 7.9 x 2.8 x 4.5 cm. Endometrium is 6.1 mm in thickness and; smooth.; ; Right ovary measures 3.9 x 2.5 x 2.8 cm contains tiny follicles and is normal in; appearance. Left ovary measures 4.5 x 3.2 x 3.8 cm also contains tiny follicles; and is normal in appearance. Perfusion is noted to the bilateral ovaries,; therefore no evidence of ovarian torsion.; ; There is no free fluid in the cul-de-sac.; ; The bladder measures 9.3 x 6.8 x 9.5 cm and is unremarkable in appearance; ; Impression; 1. Endometrium 6 mm in thickness and smooth.; 2. Unremarkable ovaries without masses or torsion. No free fluid in cul-de-sac; 3. Unremarkable bladder; ; ; ; ; Signed by; Ayanna Hernández MD 06/25/2016 08:50 P; Outcome: 12:12 Discharge ordered by Provider. ar2 12:21 Discharge Assessment: Patient awake, alert and oriented x 3. No cognitive and/or mb9 functional deficits noted. Patient verbalized understanding of disposition instructions. patient administered narcotics - no. The following High Risk Discharge criteria are identified: None. Discharged to home ambulatory. Condition: good Condition: stable Condition: improved. Discharge instructions given to patient, Instructed on discharge instructions, follow up and referral plans. medication usage, diet, Demonstrated understanding of instructions, medications, Pt was receptive of discharge instructions/ teaching. Prescriptions given X 3. No special radiology studies were completed. Property :Personal belongings accompany Pt. 12:23 Patient left the ED. mb9 Signatures: Dispatcher [employer] EDMS Debbie Martinez, RN RN Nathaly Cochran, CARDROOM PLASTIC CARD GRADER CARDROOM PLASTIC CARD GRADER jam1 Narciso Hannon, Reg Reg lg [place] sm5 Richelle Roberto,TRISTEN RN kr3 Basil Ferrell PA-C PA-C ar2 Chris NoelRN RN mb9 Mely Hankins Kathie klr Corrections: (The following items were deleted from the chart) 07:32 07:22 Acuity: ASHLEY Level 3 kr3 kr3 10:36 10:31 General: . dls dls Chart Complete MTDD
== END 2016-06-25 12:23 | disposition home or self-care (01) ==
LOC: M ED 07:03
DX: N30.01 Acute cystitis with hematuria (principal); G40.909 Epilepsy, unspecified, not intractable, without status epilepticus; F41.9 Anxiety disorder, unspecified; F32.9 Major depressive disorder, single episode, unspecified; Z79.899 Other long term (current) drug therapy; Z91.030 Bee allergy status; F17.210 Nicotine dependence, cigarettes, uncomplicated
CPT/HCPCS: 36415; 74176; 76856; 80048; 81001; 84703; 85025; 87086; 93976; 96361; 96365; 96375; 99284; J0744; J1885

== ENCOUNTER 2016-07-24 20:11 | Emergency (ER) | payer MEDICAID, OTHER ==
[2016-07-24 22:13] LABS: CONTROL LINE UCG INT CTR LINE PRESENT
[2016-07-24] MEDS ORDERED: ONDANSETRON 4MG/2ML VIAL (J2405) As Ordered ONE (22:37)
[2016-07-24 22:52] LABS: BASO % 0.3 % (0.0-1.0); EOS # 0.1 K/mm3 (0.0-0.50); LARGE UNSTAINED CELL # 0.2 K/mm3 (0.0-0.4); LARGE UNSTAINED CELL % 1.8 % (0.0-4.0); LYMPH # 2.9 K/mm3 (1.5-6.5); LYMPH % 22.4 % (24.0-44.0); MEAN CORPUSCULAR HEMOGLOBIN 29.1 pg (27.0-33.0); MEAN CORPUSCULAR HGB CONC 34.1 g/dl (32.0-36.5); MEAN CORPUSCULAR VOLUME 85.4 fl (80.0-96.0); MONO # 0.7 K/mm3 (0.0-0.8); MONO % 5.7 % (0.0-5.0); NEUTROPHILS # 8.2 K/mm3 (1.8-7.7); NEUTROPHILS % 68.8 % (36.0-66.0); PLATELET COUNT, AUTOMATED 297 k/mm3 (150-450); RED CELL DISTRIBUTION WIDTH 13.2 % (11.5-14.5)
[2016-07-24 23:04] LABS: ALBUMIN 4.4 GM/DL (3.2-5.2); ALKALINE PHOSPHATASE 100 U/L (45-117); ALT/SGPT 12 U/L (12-78); ANION GAP 10 MEQ/L (8-16); AST/SGOT 12 U/L (15-37); BILIRUBIN,DIRECT 0.1 MG/DL (0.0-0.2); BILIRUBIN,TOTAL 0.4 MG/DL (0.2-1.0); BLOOD UREA NITROGEN 11 MG/DL (7-18); CALCIUM LEVEL 9.2 MG/DL (8.5-10.1); CARBON DIOXIDE LEVEL 25 MEQ/L (21-32); CHLORIDE LEVEL 105 MEQ/L (98-107); CREATININE FOR GFR 0.74 MG/DL (0.55-1.02); GLOMERULAR FILTRATION RATE > 60.0 (>60); GLUCOSE, FASTING 88 MG/DL (70-105); POTASSIUM SERUM 3.9 MEQ/L (3.5-5.1); SODIUM LEVEL 140 MEQ/L (136-145); TOTAL PROTEIN 8.4 GM/DL (6.4-8.2)
--- NOTE | 2016-07-25 00:30 | EDDOCDS ---
Nurse's Notes [facility] Name: Laurita Barbosa Age: 21 yrs Sex: Female : 1995 Arrival Date: 07/24/2016 Time: 20:11 Bed I3 / M3 Private MD: Diagnosis: Vomiting;Diarrhea, unspecified Presentation: 07/24 20:17 Presenting complaint: Patient states: chills, nausea/vomiting/diarrhea for 2 weeks. rs3 Adult Sepsis Screening: The patient does not have new or worsening altered mentation. Patient's respiratory rate is less than 22. Systolic blood pressure is greater than 100. Patient has a qSOFA score of 0- Negative Sepsis Screen. Suicide/Homicide risk assessment- the patient denies having any suicidal and/or homicidal ideations and does not present with any other emotional, behavioral or mental health complaints. Status: The patient is a dependent. Transition of care: patient was not received from another setting of care. 20:17 Acuity: ASHLEY Level 4 rs3 20:17 Method Of Arrival: Walkin/Carried/Asstd rs3 Triage Assessment: 20:19 General: Appears in no apparent distress. Pain: Location: abdomen. HIV screening NA for rs3 this visit Offered previously. Historical: - Allergies: Bees; - Home Meds: 1. gabapentin 300 mg Oral cap nightly 2. Prozac Oral once daily 3. Xanax 0.5 mg Oral tab - PMHx: Anxiety; atrial-septal aneursym; Depression; Seizure Disorder; - PSHx: Appendectomy; Tonsillectomy; - Social history: Smoking status: Patient uses tobacco products, light tobacco smoker. No barriers to communication noted, The patient speaks fluent Syrian. - Family history: Not pertinent. - : The pt / caregiver states he / she is not on anticoagulants. Home medication list is obtained from the patient. - Exposure Risk Screening:: None identified. Screenin:44 Screening information is obtained from the patient. Fall risk: No risks identified. lf1 Assistance ADL's: requires no assistance with activities of daily living. Abuse/DV Screen: The patient / caregiver reports he/she is: not in a situation that causes fear, pain or injury. Nutritional screening: No deficits noted. Advance Directives: Currently, there is no health care proxy. home support is adequate. Assessment: 22:44 Adult Sepsis Screening: The patient does not have new or worsening altered mentation. lf1 Patient's respiratory rate is less than 22. Systolic blood pressure is greater than 100. Patient has a qSOFA score of 0- Negative Sepsis Screen. General: Appears in no apparent distress, comfortable, Behavior is cooperative. Pain: Location: right upper quadrant Pain currently is 6 out of 10 on a pain scale. Neurological: Level of Consciousness is awake, alert. EENT: No deficits noted. Respiratory: Respiratory effort is even, unlabored, Breath sounds are clear bilaterally. Reports cough that is. GI: Abdomen is non- distended Bowel sounds present X 4 quads. Reports diarrhea, upper abd pain, nausea, vomiting. Derm: Skin is normal. Injury Description: No known injury. 23:46 General: Appears in no apparent distress, comfortable, Behavior is cooperative. Pain: lf1 Denies pain. Neurological: Level of Consciousness is awake, alert. Respiratory: Respiratory effort is even, unlabored. GI: Reports nausea. Derm: Skin is normal. Vital Signs: 20:13 BP 120 / 68; Pulse 87; Resp 18; Temp 98.7(O); Pulse Ox 97% on R/A; Weight 72.94 kg (M); kb5 Height 5 ft. 2 in. (157.48 cm) (R); Pain 07/14; 07/25 00:28 BP 103 / 59; Pulse 62; Resp 18; Temp 98.2(T); Pulse Ox 95% on R/A; mf4 07/24 20:13 Body Mass Index 29.41 (72.94 kg, 157.48 cm) kb5 Vitals: 07/24 20:15 Log In Time: July 24, 2016 at 19:27. kb5 ED Course: 20:12 Patient visited by Amador Cabezas PCA. kb5 20:12 Patient moved to Waiting kb5 20:18 Triage Initiated rs3 20:19 Patient moved to Pre RCE rs3 21:16 Patient moved to Triage 2 jmb 21:36 Chris Woo PA is PHCP. mo1 21:36 Jovani Puckett DO is Attending Physician. mo1 21:41 Patient visited by Chris Woo PA. mo1 21:55 Patient moved to I3 / M3 nn1 22:35 Basic Metabolic Profile Sent. lf1 22:35 CBC with Diff Sent. lf1 22:35 Lipase Sent. lf1 22:36 Liver Profile Sent. lf1 22:44 The patient / caregiver is instructed regarding the plan of care and ED course. lf1 22:44 Inserted saline lock: 20 gauge in left antecubital area and blood collected. The lf1 patient tolerated the procedure well. Labs drawn. (by ED staff). Sent per order to lab. 22:47 Patient visited by Tiarra Oneal RN. lf1 23:14 Patient name changed from Laurita\S\\S\[place]\S\ to Laurita\S\ \S\[place]. EDMS 23:15 [facility] Payment Agreement was scanned into [employer] and attached to record. [facility] 23:47 Patient visited by Tiarra Oneal RN. [facility] 07/25 00:28 Discontinued lock. No procedures done that require assistance. mf4 Administered Medications: 07/24 22:43 Drug: NS 0.9% 1000 ml [sodium chloride 0.9 % intravenous solution] Route: IV; Rate: lf1 bolus; Site: left antecubital; 23:46 Follow up: IV Status: Completed infusion; IV Intake: 1000ml lf1 22:44 Drug: Ondansetron 4 mg Route: IVP; Site: left antecubital; lf1 23:25 Follow up: Response: Nausea is decreased mf4 Intake: 23:46 IV: 1000.00ml; Total: 1000.00ml. lf1 Order Results: Lab Order: Basic Metabolic Profile; SPEC'M 07/24/16 22:35 Test: GLUCOSE, FASTING; Value: 88; Range: 70-105; Units: MG/DL; Status: F Test: BLOOD UREA NITROGEN; Value: 11; Range: 7-18; Units: MG/DL; Status: F Test: CREATININE FOR GFR; Value: 0.74; Range: 0.55-1.02; Units: MG/DL; Status: F Test: GLOMERULAR FILTRATION RATE; Value: > 60.0; Range: >60; Status: F Test: SODIUM LEVEL; Value: 140; Range: 136-145; Units: MEQ/L; Status: F Test: POTASSIUM SERUM; Value: 3.9; Range: 3.5-5.1; Units: MEQ/L; Status: F Test: CHLORIDE LEVEL; Value: 105; Range: 98-107; Units: MEQ/L; Status: F Test: CARBON DIOXIDE LEVEL; Value: 25; Range: 21-32; Units: MEQ/L; Status: F Test: ANION GAP; Value: 10; Range: 8-16; Units: MEQ/L; Status: F Test: CALCIUM LEVEL; Value: 9.2; Range: 8.5-10.1; Units: MG/DL; Status: F Test Note: ; Units are mL/min/1.73 m2 Chronic Kidney Disease Staging per NKF: Stage I & II GFR >=60 Normal to Mildly Decreased Stage III GFR 30-59 Moderately Decreased Stage IV GFR 15-29 Severely Decreased Stage V GFR <15 Very Little GFR Left ESRD GFR <15 on 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 Lab Order: CBC with Diff; SPEC'M 07/24/16 22:35 Test: WHITE BLOOD COUNT; Value: 12.0; Range: 4.0-10.0; Abnormal: Above high normal; Units: K/mm3; Status: F Test: RED BLOOD COUNT; Value: 4.84; Range: 4.00-5.40; Units: M/mm3; Status: F Test: HEMOGLOBIN; Value: 14.1; Range: 12.0-16.0; Units: g/dl; Status: F Test: HEMATOCRIT; Value: 41.4; Range: 36.0-47.0; Units: %; Status: F Test: MEAN CORPUSCULAR VOLUME; Value: 85.4; Range: 80.0-96.0; Units: fl; Status: F Test: MEAN CORPUSCULAR HEMOGLOBIN; Value: 29.1; Range: 27.0-33.0; Units: pg; Status: F Test: MEAN CORPUSCULAR HGB CONC; Value: 34.1; Range: 32.0-36.5; Units: g/dl; Status: F Test: RED CELL DISTRIBUTION WIDTH; Value: 13.2; Range: 11.5-14.5; Units: %; Status: F Test: PLATELET COUNT, AUTOMATED; Value: 297; Range: 150-450; Units: k/mm3; Status: F Test: NEUTROPHILS %; Value: 68.8; Range: 36.0-66.0; Abnormal: Above high normal; Units: %; Status: F Test: LYMPH %; Value: 22.4; Range: 24.0-44.0; Abnormal: Below low normal; Units: %; Status: F Test: MONO %; Value: 5.7; Range: 0.0-5.0; Abnormal: Above high normal; Units: %; Status: F Test: EOS %; Value: 1.0; Range: 0.0-3.0; Units: %; Status: F Test: BASO %; Value: 0.3; Range: 0.0-1.0; Units: %; Status: F Test: LARGE UNSTAINED CELL %; Value: 1.8; Range: 0.0-4.0; Units: %; Status: F Test: NEUTROPHILS #; Value: 8.2; Range: 1.8-7.7; Abnormal: Above high normal; Units: K/mm3; Status: F Test: LYMPH #; Value: 2.9; Range: 1.5-6.5; Units: K/mm3; Status: F Test: MONO #; Value: 0.7; Range: 0.0-0.8; Units: K/mm3; Status: F Test: EOS #; Value: 0.1; Range: 0.0-0.50; Units: K/mm3; Status: F Test: BASO #; Value: 0.0; Range: 0.0-0.2; Units: K/mm3; Status: F Test: LARGE UNSTAINED CELL #; Value: 0.2; Range: 0.0-0.4; Units: K/mm3; Status: F Lab Order: Lipase; SPEC'M 07/24/16 22:35 Test: LIPASE; Value: 66; Range: 73-393; Abnormal: Below low normal; Units: U/L; Status: F Lab Order: Liver Profile; SPEC'M 07/24/16 22:35 Test: AST/SGOT; Value: 12; Range: 15-37; Abnormal: Below low normal; Units: U/L; Status: F Test: ALT/SGPT; Value: 12; Range: 12-78; Units: U/L; Status: F Test: ALKALINE PHOSPHATASE; Value: 100; Range: 45-117; Units: U/L; Status: F Test: BILIRUBIN,TOTAL; Value: 0.4; Range: 0.2-1.0; Units: MG/DL; Status: F Test: BILIRUBIN,DIRECT; Value: 0.1; Range: 0.0-0.2; Units: MG/DL; Status: F Test: TOTAL PROTEIN; Value: 8.4; Range: 6.4-8.2; Abnormal: Above high normal; Units: GM/DL; Status: F Test: ALBUMIN; Value: 4.4; Range: 3.2-5.2; Units: GM/DL; Status: F Test: ALBUMIN/GLOBULIN RATIO; Value: 1.10; Range: 1.00-1.93; Status: F Lab Order: Urinalysis; SPEC'M 07/24/16 21:57 Test: APPEARANCE, URINE; Value: CLOUDY; Range: CLEAR; Abnormal: Above high normal; Status: F Test: COLOR, URINE; Value: YELLOW; Range: YELLOW; Status: F Test: PH,URINE; Value: 5.0; Range: 5.0-9.0; Units: UNITS; Status: F Test: SPECIFIC GRAVITY URINE AUTO; Value: 1.021; Range: 1.002-1.035; Status: F Test: PROTEIN, URINE AUTO; Value: NEGATIVE; Range: NEGATIVE; Units: mg/dL; Status: F Test: GLUCOSE, URINE (UA) AUTO; Value: NEGATIVE; Range: NEGATIVE; Units: mg/dL; Status: F Test: KETONE, URINE AUTO; Value: 1+; Range: NEGATIVE; Abnormal: Above high normal; Units: mg/dL; Status: F Test: UROBILINOGEN, URINE AUTO; Value: 0.2; Range: 0.0-2.0; Units: mg/dL; Status: F Test: BILIRUBIN, URINE AUTO; Value: NEGATIVE; Range: NEGATIVE; Status: F Test: NITRITE, URINE AUTO; Value: NEGATIVE; Range: NEGATIVE; Status: F Test: LEUKOCYTE ESTERASE, URINE AUTO; Value: NEGATIVE; Range: NEGATIVE; Status: F Test: BLOOD, URINE BLOOD; Value: 1+; Range: NEGATIVE; Abnormal: Above high normal; Status: F Test: WBC, URINE AUTO; Value: 4; Range: 0-3; Abnormal: Above high normal; Units: /HPF; Status: F Test: RBC, URINE AUTO; Value: 2; Range: 0-3; Units: /HPF; Status: F Test: BACTERIA, URINE AUTO; Value: 2+; Range: NEGATIVE; Abnormal: Above high normal; Status: F Test: SQUAMOUS EPITHELIAL CELL UR AU; Value: 20; Range: 0-6; Units: /HPF; Status: F Test: MUCUS, URINE; Value: SMALL; Range: NEGATIVE; Status: F Test: HYALINE CAST, URINE AUTO; Value: 0; Range: 0-1; Units: /LPF; Status: F Lab Order: Urine Test-In Lab; SPEC'M 07/24/16 21:57 Test: URINE PREG TEST; Value: NEGATIVE; Range: NEGATIVE; Status: F Outcome: 23:51 Discharge ordered by Provider. mo1 07/25 00:28 Discharge Assessment: Patient awake, alert and oriented x 3. No cognitive and/or mf4 functional deficits noted. Patient verbalized understanding of disposition instructions. patient administered narcotics - no. The following High Risk Discharge criteria are identified: None. Discharged to home ambulatory. Condition: improved. Discharge instructions given to patient, Instructed on discharge instructions, follow up and referral plans. medication usage, Demonstrated understanding of instructions, Pt was receptive of discharge instructions/ teaching. Prescriptions given X efile. No special radiology studies were completed. Property sent home with patient. 00:29 Patient left the ED. mf4 Signatures: Dispatcher [employer] EDAmador Torres, RESEARCH BIOSTATISTICIAN RESEARCH BIOSTATISTICIAN kb5 Tiarra Oneal,RN RN lf1 Franchesca Riley,RN RN rs3 Chris Sellers,OWNER CONSULTING ENGINEER OWNER CONSULTING ENGINEER mf4 Chris Woo PA PA mo1 Bill Pineda,RN RN Antonio Calvin,RN RN nn1 Mely Hankins DAVIDD
--- NOTE | 2016-07-25 00:30 | EDDOCDS ---
Physician Documentation [facility] Name: Laurita Barbosa Age: 21 yrs Sex: Female : 1995 Arrival Date: 07/24/2016 Time: 20:11 Bed I3 / M3 Private MD: Disposition: 07/24/16 23:51 Discharged to Home/Self Care. Impression: Vomiting, Diarrhea, unspecified. - Condition is Stable. - Discharge Instructions: Food Choices to Help Relieve Diarrhea, Adult, Nausea and Vomiting. - Prescriptions for Reglan 10 mg Oral Tablet - take 1 tablet by ORAL route every 6 hours take 30 minutes before meals and at bedtime; 20 tablet. - Medication Reconciliation, Local Pharmacy Hours form. - Follow up: Private Physician; When: Call to arrange an appointment; Reason: Recheck today's complaints, Continuance of care. - Problem is new. - Symptoms are unchanged. Historical: - Allergies: Bees; - Home Meds: 1. gabapentin 300 mg Oral cap nightly 2. Prozac Oral once daily 3. Xanax 0.5 mg Oral tab - PMHx: Anxiety; atrial-septal aneursym; Depression; Seizure Disorder; - PSHx: Appendectomy; Tonsillectomy; - Social history: Smoking status: Patient uses tobacco products, light tobacco smoker. No barriers to communication noted, The patient speaks fluent Hebrew. - Family history: Not pertinent. - : The pt / caregiver states he / she is not on anticoagulants. Home medication list is obtained from the patient. - Exposure Risk Screening:: None identified. Vital Signs: 07/24 20:13 BP 120 / 68; Pulse 87; Resp 18; Temp 98.7(O); Pulse Ox 97% on R/A; Weight 72.94 kg / kb5 160.81 lbs (M); Height 5 ft. 2 in. (157.48 cm) (R); Pain 2/10; 07/25 00:28 BP 103 / 59; Pulse 62; Resp 18; Temp 98.2(T); Pulse Ox 95% on R/A; mf4 07/24 20:13 Body Mass Index 29.41 (72.94 kg, 157.48 cm) kb5 MDM: 07/24 21:54 NS 0.9% 1000 ml IV at bolus once ordered. mo1 21:54 Ondansetron 4 mg IVP once ordered. mo1 21:54 IV Saline Lock ordered. mo1 21:54 Undress patient appropriately for examination ordered. mo1 21:55 NOTHING BY MOUTH+DIET ordered. EDMS 21:56 Basic Metabolic Profile Ordered. EDMS 21:56 CBC with Diff Ordered. EDMS 21:56 Lipase Ordered. EDMS 21:56 Liver Profile Ordered. EDMS 21:56 Urinalysis Ordered. EDMS 21:56 Urine Test-In Lab Ordered. EDMS 22:22 Urinalysis Reviewed. mo1 22:27 Financial registration complete. gjb 22:29 Urine Test-In Lab Reviewed. mo1 22:59 CBC with Diff Reviewed. mo1 23:08 Liver Profile Reviewed. mo1 23:08 Lipase Reviewed. mo1 23:08 Basic Metabolic Profile Reviewed. mo1 23:15 [facility] Payment Agreement was scanned into [employer] and attached to record. gjb Administered Medications: 22:43 Drug: NS 0.9% 1000 ml [sodium chloride 0.9 % intravenous solution] Route: IV; Rate: lf1 bolus; Site: left antecubital; 23:46 Follow up: IV Status: Completed infusion; IV Intake: 1000ml lf1 22:44 Drug: Ondansetron 4 mg Route: IVP; Site: left antecubital; lf1 23:25 Follow up: Response: Nausea is decreased mf4 Signatures: Dispatcher [employer] LASHAYKY Tiarra OnealRN RN lf1 Franchesca Riley RN RN rs3 Chris Sellers,FUNERAL DIRECTOR FUNERAL DIRECTOR mf4 Chris Woo PA PA say1 Mely Hankins The chart was reviewed and I authenticate all verbal orders and agree with the evaluation and treatment provided.Attachments: 23:15 [facility] Payment Agreement gjb MTDD
--- NOTE | 2016-07-27 01:30 | EDDOCDS ---
Physician Documentation [facility] Name: Laurita Barbosa Age: 21 yrs Sex: Female : 1995 Arrival Date: 07/24/2016 Time: 20:11 Bed I3 / M3 Private MD: Disposition: 07/24/16 23:51 Discharged to Home/Self Care. Impression: Vomiting, Diarrhea, unspecified. - Condition is Stable. - Discharge Instructions: Food Choices to Help Relieve Diarrhea, Adult, Nausea and Vomiting. - Prescriptions for Reglan 10 mg Oral Tablet - take 1 tablet by ORAL route every 6 hours take 30 minutes before meals and at bedtime; 20 tablet. - Medication Reconciliation, Local Pharmacy Hours form. - Follow up: Private Physician; When: Call to arrange an appointment; Reason: Recheck today's complaints, Continuance of care. - Problem is new. - Symptoms are unchanged. Historical: - Allergies: Bees; - Home Meds: 1. gabapentin 300 mg Oral cap nightly 2. Prozac Oral once daily 3. Xanax 0.5 mg Oral tab - PMHx: Anxiety; atrial-septal aneursym; Depression; Seizure Disorder; - PSHx: Appendectomy; Tonsillectomy; - Social history: Smoking status: Patient uses tobacco products, light tobacco smoker. No barriers to communication noted, The patient speaks fluent Maori. - Family history: Not pertinent. - : The pt / caregiver states he / she is not on anticoagulants. Home medication list is obtained from the patient. - Exposure Risk Screening:: None identified. Vital Signs: 07/24 20:13 BP 120 / 68; Pulse 87; Resp 18; Temp 98.7(O); Pulse Ox 97% on R/A; Weight 72.94 kg / kb5 160.81 lbs (M); Height 5 ft. 2 in. (157.48 cm) (R); Pain 2/10; 07/25 00:28 BP 103 / 59; Pulse 62; Resp 18; Temp 98.2(T); Pulse Ox 95% on R/A; mf4 07/24 20:13 Body Mass Index 29.41 (72.94 kg, 157.48 cm) kb5 MDM: 07/24 21:54 NS 0.9% 1000 ml IV at bolus once ordered. mo1 21:54 Ondansetron 4 mg IVP once ordered. mo1 21:54 IV Saline Lock ordered. mo1 21:54 Undress patient appropriately for examination ordered. mo1 21:55 NOTHING BY MOUTH+DIET ordered. EDMS 21:56 Basic Metabolic Profile Ordered. EDMS 21:56 CBC with Diff Ordered. EDMS 21:56 Lipase Ordered. EDMS 21:56 Liver Profile Ordered. EDMS 21:56 Urinalysis Ordered. EDMS 21:56 Urine Test-In Lab Ordered. EDMS 22:22 Urinalysis Reviewed. mo1 22:27 Financial registration complete. gjb 22:29 Urine Test-In Lab Reviewed. mo1 22:59 CBC with Diff Reviewed. mo1 23:08 Liver Profile Reviewed. mo1 23:08 Lipase Reviewed. mo1 23:08 Basic Metabolic Profile Reviewed. mo1 23:15 [facility] Payment Agreement was scanned into [employer] and attached to record. [facility] 07/25 09:32 T-Sheet-- Draft Copy was scanned into [employer] and attached to record. gb Administered Medications: 07/24 22:43 Drug: NS 0.9% 1000 ml [sodium chloride 0.9 % intravenous solution] Route: IV; Rate: lf1 bolus; Site: left antecubital; 23:46 Follow up: IV Status: Completed infusion; IV Intake: 1000ml lf1 22:44 Drug: Ondansetron 4 mg Route: IVP; Site: left antecubital; lf1 23:25 Follow up: Response: Nausea is decreased mf4 Signatures: Dispatcher [employer] EDMS Riri Peraza, Reg Reg gb Tiarra OnealRN RN lf1 Franchesca Riley RN RN rs3 Chris Sellers,RAIL TRACK LAYER RAIL TRACK LAYER mf4 Chris Woo PA PA mo1 Mely Hankins [facility] The chart was reviewed and I authenticate all verbal orders and agree with the evaluation and treatment provided.Attachments: 23:15 [facility] Payment Agreement [facility] 07/25 09:32 T-Sheet-- Draft Copy gb Chart Complete MTDD
--- NOTE | 2016-07-27 01:30 | EDDOCDS ---
Nurse's Notes [facility] Name: Laurita Barbosa Age: 21 yrs Sex: Female : 1995 Arrival Date: 07/24/2016 Time: 20:11 Bed I3 / M3 Private MD: Diagnosis: Vomiting;Diarrhea, unspecified Presentation: 07/24 20:17 Presenting complaint: Patient states: chills, nausea/vomiting/diarrhea for 2 weeks. rs3 Adult Sepsis Screening: The patient does not have new or worsening altered mentation. Patient's respiratory rate is less than 22. Systolic blood pressure is greater than 100. Patient has a qSOFA score of 0- Negative Sepsis Screen. Suicide/Homicide risk assessment- the patient denies having any suicidal and/or homicidal ideations and does not present with any other emotional, behavioral or mental health complaints. Status: The patient is a dependent. Transition of care: patient was not received from another setting of care. 20:17 Acuity: ASHLEY Level 4 rs3 20:17 Method Of Arrival: Walkin/Carried/Asstd rs3 Triage Assessment: 20:19 General: Appears in no apparent distress. Pain: Location: abdomen. HIV screening NA for rs3 this visit Offered previously. Historical: - Allergies: Bees; - Home Meds: 1. gabapentin 300 mg Oral cap nightly 2. Prozac Oral once daily 3. Xanax 0.5 mg Oral tab - PMHx: Anxiety; atrial-septal aneursym; Depression; Seizure Disorder; - PSHx: Appendectomy; Tonsillectomy; - Social history: Smoking status: Patient uses tobacco products, light tobacco smoker. No barriers to communication noted, The patient speaks fluent Iraqi. - Family history: Not pertinent. - : The pt / caregiver states he / she is not on anticoagulants. Home medication list is obtained from the patient. - Exposure Risk Screening:: None identified. Screenin:44 Screening information is obtained from the patient. Fall risk: No risks identified. lf1 Assistance ADL's: requires no assistance with activities of daily living. Abuse/DV Screen: The patient / caregiver reports he/she is: not in a situation that causes fear, pain or injury. Nutritional screening: No deficits noted. Advance Directives: Currently, there is no health care proxy. home support is adequate. Assessment: 22:44 Adult Sepsis Screening: The patient does not have new or worsening altered mentation. lf1 Patient's respiratory rate is less than 22. Systolic blood pressure is greater than 100. Patient has a qSOFA score of 0- Negative Sepsis Screen. General: Appears in no apparent distress, comfortable, Behavior is cooperative. Pain: Location: right upper quadrant Pain currently is 6 out of 10 on a pain scale. Neurological: Level of Consciousness is awake, alert. EENT: No deficits noted. Respiratory: Respiratory effort is even, unlabored, Breath sounds are clear bilaterally. Reports cough that is. GI: Abdomen is non- distended Bowel sounds present X 4 quads. Reports diarrhea, upper abd pain, nausea, vomiting. Derm: Skin is normal. Injury Description: No known injury. 23:46 General: Appears in no apparent distress, comfortable, Behavior is cooperative. Pain: lf1 Denies pain. Neurological: Level of Consciousness is awake, alert. Respiratory: Respiratory effort is even, unlabored. GI: Reports nausea. Derm: Skin is normal. Vital Signs: 20:13 BP 120 / 68; Pulse 87; Resp 18; Temp 98.7(O); Pulse Ox 97% on R/A; Weight 72.94 kg (M); kb5 Height 5 ft. 2 in. (157.48 cm) (R); Pain 07/14; 07/25 00:28 BP 103 / 59; Pulse 62; Resp 18; Temp 98.2(T); Pulse Ox 95% on R/A; mf4 07/24 20:13 Body Mass Index 29.41 (72.94 kg, 157.48 cm) kb5 Vitals: 07/24 20:15 Log In Time: July 24, 2016 at 19:27. kb5 ED Course: 20:12 Patient visited by Amador Cabezas PCA. kb5 20:12 Patient moved to Waiting kb5 20:18 Triage Initiated rs3 20:19 Patient moved to Pre RCE rs3 21:16 Patient moved to Triage 2 jmb 21:36 Chris Woo PA is PHCP. mo1 21:36 Jovani Puckett DO is Attending Physician. mo1 21:41 Patient visited by Chris Woo PA. mo1 21:55 Patient moved to I3 / M3 nn1 22:35 Basic Metabolic Profile Sent. lf1 22:35 CBC with Diff Sent. lf1 22:35 Lipase Sent. lf1 22:36 Liver Profile Sent. lf1 22:44 The patient / caregiver is instructed regarding the plan of care and ED course. lf1 22:44 Inserted saline lock: 20 gauge in left antecubital area and blood collected. The lf1 patient tolerated the procedure well. Labs drawn. (by ED staff). Sent per order to lab. 22:47 Patient visited by Tiarra Oneal RN. lf1 23:14 Patient name changed from Laurita\S\\S\[place]\S\ to Laurita\S\ \S\[place]. EDMS 23:15 [facility] Payment Agreement was scanned into [employer] and attached to record. [facility] 23:47 Patient visited by Tiarra Oneal RN. [facility] 07/25 00:28 Discontinued lock. No procedures done that require assistance. 4 09:32 T-Sheet-- Draft Copy was scanned into [employer] and attached to record. gb Administered Medications: 07/24 22:43 Drug: NS 0.9% 1000 ml [sodium chloride 0.9 % intravenous solution] Route: IV; Rate: lf1 bolus; Site: left antecubital; 23:46 Follow up: IV Status: Completed infusion; IV Intake: 1000ml lf1 22:44 Drug: Ondansetron 4 mg Route: IVP; Site: left antecubital; lf1 23:25 Follow up: Response: Nausea is decreased mf4 Intake: 23:46 IV: 1000.00ml; Total: 1000.00ml. [facility] Order Results: Lab Order: Basic Metabolic Profile; SPEC' 07/24/16 22:35 Test: GLUCOSE, FASTING; Value: 88; Range: 70-105; Units: MG/DL; Status: F Test: BLOOD UREA NITROGEN; Value: 11; Range: 7-18; Units: MG/DL; Status: F Test: CREATININE FOR GFR; Value: 0.74; Range: 0.55-1.02; Units: MG/DL; Status: F Test: GLOMERULAR FILTRATION RATE; Value: > 60.0; Range: >60; Status: F Test: SODIUM LEVEL; Value: 140; Range: 136-145; Units: MEQ/L; Status: F Test: POTASSIUM SERUM; Value: 3.9; Range: 3.5-5.1; Units: MEQ/L; Status: F Test: CHLORIDE LEVEL; Value: 105; Range: 98-107; Units: MEQ/L; Status: F Test: CARBON DIOXIDE LEVEL; Value: 25; Range: 21-32; Units: MEQ/L; Status: F Test: ANION GAP; Value: 10; Range: 8-16; Units: MEQ/L; Status: F Test: CALCIUM LEVEL; Value: 9.2; Range: 8.5-10.1; Units: MG/DL; Status: F Test Note: ; Units are mL/min/1.73 m2 Chronic Kidney Disease Staging per NKF: Stage I & II GFR >=60 Normal to Mildly Decreased Stage III GFR 30-59 Moderately Decreased Stage IV GFR 15-29 Severely Decreased Stage V GFR <15 Very Little GFR Left ESRD GFR <15 on AGITATOR OPERATOR Lab Order: CBC with Diff; SPEC'M 07/24/16 22:35 Test: WHITE BLOOD COUNT; Value: 12.0; Range: 4.0-10.0; Abnormal: Above high normal; Units: K/mm3; Status: F Test: RED BLOOD COUNT; Value: 4.84; Range: 4.00-5.40; Units: M/mm3; Status: F Test: HEMOGLOBIN; Value: 14.1; Range: 12.0-16.0; Units: g/dl; Status: F Test: HEMATOCRIT; Value: 41.4; Range: 36.0-47.0; Units: %; Status: F Test: MEAN CORPUSCULAR VOLUME; Value: 85.4; Range: 80.0-96.0; Units: fl; Status: F Test: MEAN CORPUSCULAR HEMOGLOBIN; Value: 29.1; Range: 27.0-33.0; Units: pg; Status: F Test: MEAN CORPUSCULAR HGB CONC; Value: 34.1; Range: 32.0-36.5; Units: g/dl; Status: F Test: RED CELL DISTRIBUTION WIDTH; Value: 13.2; Range: 11.5-14.5; Units: %; Status: F Test: PLATELET COUNT, AUTOMATED; Value: 297; Range: 150-450; Units: k/mm3; Status: F Test: NEUTROPHILS %; Value: 68.8; Range: 36.0-66.0; Abnormal: Above high normal; Units: %; Status: F Test: LYMPH %; Value: 22.4; Range: 24.0-44.0; Abnormal: Below low normal; Units: %; Status: F Test: MONO %; Value: 5.7; Range: 0.0-5.0; Abnormal: Above high normal; Units: %; Status: F Test: EOS %; Value: 1.0; Range: 0.0-3.0; Units: %; Status: F Test: BASO %; Value: 0.3; Range: 0.0-1.0; Units: %; Status: F Test: LARGE UNSTAINED CELL %; Value: 1.8; Range: 0.0-4.0; Units: %; Status: F Test: NEUTROPHILS #; Value: 8.2; Range: 1.8-7.7; Abnormal: Above high normal; Units: K/mm3; Status: F Test: LYMPH #; Value: 2.9; Range: 1.5-6.5; Units: K/mm3; Status: F Test: MONO #; Value: 0.7; Range: 0.0-0.8; Units: K/mm3; Status: F Test: EOS #; Value: 0.1; Range: 0.0-0.50; Units: K/mm3; Status: F Test: BASO #; Value: 0.0; Range: 0.0-0.2; Units: K/mm3; Status: F Test: LARGE UNSTAINED CELL #; Value: 0.2; Range: 0.0-0.4; Units: K/mm3; Status: F Lab Order: Lipase; SPEC'M 07/24/16 22:35 Test: LIPASE; Value: 66; Range: 73-393; Abnormal: Below low normal; Units: U/L; Status: F Lab Order: Liver Profile; SPEC'M 07/24/16 22:35 Test: AST/SGOT; Value: 12; Range: 15-37; Abnormal: Below low normal; Units: U/L; Status: F Test: ALT/SGPT; Value: 12; Range: 12-78; Units: U/L; Status: F Test: ALKALINE PHOSPHATASE; Value: 100; Range: 45-117; Units: U/L; Status: F Test: BILIRUBIN,TOTAL; Value: 0.4; Range: 0.2-1.0; Units: MG/DL; Status: F Test: BILIRUBIN,DIRECT; Value: 0.1; Range: 0.0-0.2; Units: MG/DL; Status: F Test: TOTAL PROTEIN; Value: 8.4; Range: 6.4-8.2; Abnormal: Above high normal; Units: GM/DL; Status: F Test: ALBUMIN; Value: 4.4; Range: 3.2-5.2; Units: GM/DL; Status: F Test: ALBUMIN/GLOBULIN RATIO; Value: 1.10; Range: 1.00-1.93; Status: F Lab Order: Urinalysis; SPEC'M 07/24/16 21:57 Test: APPEARANCE, URINE; Value: CLOUDY; Range: CLEAR; Abnormal: Above high normal; Status: F Test: COLOR, URINE; Value: YELLOW; Range: YELLOW; Status: F Test: PH,URINE; Value: 5.0; Range: 5.0-9.0; Units: UNITS; Status: F Test: SPECIFIC GRAVITY URINE AUTO; Value: 1.021; Range: 1.002-1.035; Status: F Test: PROTEIN, URINE AUTO; Value: NEGATIVE; Range: NEGATIVE; Units: mg/dL; Status: F Test: GLUCOSE, URINE (UA) AUTO; Value: NEGATIVE; Range: NEGATIVE; Units: mg/dL; Status: F Test: KETONE, URINE AUTO; Value: 1+; Range: NEGATIVE; Abnormal: Above high normal; Units: mg/dL; Status: F Test: UROBILINOGEN, URINE AUTO; Value: 0.2; Range: 0.0-2.0; Units: mg/dL; Status: F Test: BILIRUBIN, URINE AUTO; Value: NEGATIVE; Range: NEGATIVE; Status: F Test: NITRITE, URINE AUTO; Value: NEGATIVE; Range: NEGATIVE; Status: F Test: LEUKOCYTE ESTERASE, URINE AUTO; Value: NEGATIVE; Range: NEGATIVE; Status: F Test: BLOOD, URINE BLOOD; Value: 1+; Range: NEGATIVE; Abnormal: Above high normal; Status: F Test: WBC, URINE AUTO; Value: 4; Range: 0-3; Abnormal: Above high normal; Units: /HPF; Status: F Test: RBC, URINE AUTO; Value: 2; Range: 0-3; Units: /HPF; Status: F Test: BACTERIA, URINE AUTO; Value: 2+; Range: NEGATIVE; Abnormal: Above high normal; Status: F Test: SQUAMOUS EPITHELIAL CELL UR AU; Value: 20; Range: 0-6; Units: /HPF; Status: F Test: MUCUS, URINE; Value: SMALL; Range: NEGATIVE; Status: F Test: HYALINE CAST, URINE AUTO; Value: 0; Range: 0-1; Units: /LPF; Status: F Lab Order: Urine Test-In Lab; SPEC'M 07/24/16 21:57 Test: URINE PREG TEST; Value: NEGATIVE; Range: NEGATIVE; Status: F Outcome: 23:51 Discharge ordered by Provider. mo1 07/25 00:28 Discharge Assessment: Patient awake, alert and oriented x 3. No cognitive and/or mf4 functional deficits noted. Patient verbalized understanding of disposition instructions. patient administered narcotics - no. The following High Risk Discharge criteria are identified: None. Discharged to home ambulatory. Condition: improved. Discharge instructions given to patient, Instructed on discharge instructions, follow up and referral plans. medication usage, Demonstrated understanding of instructions, Pt was receptive of discharge instructions/ teaching. Prescriptions given X efile. No special radiology studies were completed. Property sent home with patient. 00:29 Patient left the ED. mf4 Signatures: Dispatcher [employer] EDMS Riri Peraza, Reg Reg gb Amador Cabezas, EXECUTIVE ADMIN EXECUTIVE ADMIN kb5 Tiarra Oneal,RN RN lf1 Franchesca Riley,RN RN rs3 Chris Sellers LPN LPN mf4 Chris Woo PA PA mo1 Bill Pineda, RN RN Antonio Calvin,RN RN brigida1 Mely Hankins Chart Complete MTDD
--- NOTE | 2016-07-27 01:30 | EDDOCDS ---
Physician Documentation [facility] Name: Laurita Barbosa Age: 21 yrs Sex: Female : 1995 Arrival Date: 07/24/2016 Time: 20:11 Bed I3 / M3 Private MD: Disposition: 07/24/16 23:51 Discharged to Home/Self Care. Impression: Vomiting, Diarrhea, unspecified. - Condition is Stable. - Discharge Instructions: Food Choices to Help Relieve Diarrhea, Adult, Nausea and Vomiting. - Prescriptions for Reglan 10 mg Oral Tablet - take 1 tablet by ORAL route every 6 hours take 30 minutes before meals and at bedtime; 20 tablet. - Medication Reconciliation, Local Pharmacy Hours form. - Follow up: Private Physician; When: Call to arrange an appointment; Reason: Recheck today's complaints, Continuance of care. - Problem is new. - Symptoms are unchanged. Historical: - Allergies: Bees; - Home Meds: 1. gabapentin 300 mg Oral cap nightly 2. Prozac Oral once daily 3. Xanax 0.5 mg Oral tab - PMHx: Anxiety; atrial-septal aneursym; Depression; Seizure Disorder; - PSHx: Appendectomy; Tonsillectomy; - Social history: Smoking status: Patient uses tobacco products, light tobacco smoker. No barriers to communication noted, The patient speaks fluent Yi. - Family history: Not pertinent. - : The pt / caregiver states he / she is not on anticoagulants. Home medication list is obtained from the patient. - Exposure Risk Screening:: None identified. Vital Signs: 07/24 20:13 BP 120 / 68; Pulse 87; Resp 18; Temp 98.7(O); Pulse Ox 97% on R/A; Weight 72.94 kg / kb5 160.81 lbs (M); Height 5 ft. 2 in. (157.48 cm) (R); Pain 2/10; 07/25 00:28 BP 103 / 59; Pulse 62; Resp 18; Temp 98.2(T); Pulse Ox 95% on R/A; mf4 07/24 20:13 Body Mass Index 29.41 (72.94 kg, 157.48 cm) kb5 MDM: 07/24 21:54 NS 0.9% 1000 ml IV at bolus once ordered. mo1 21:54 Ondansetron 4 mg IVP once ordered. mo1 21:54 IV Saline Lock ordered. mo1 21:54 Undress patient appropriately for examination ordered. mo1 21:55 NOTHING BY MOUTH+DIET ordered. EDMS 21:56 Basic Metabolic Profile Ordered. EDMS 21:56 CBC with Diff Ordered. EDMS 21:56 Lipase Ordered. EDMS 21:56 Liver Profile Ordered. EDMS 21:56 Urinalysis Ordered. EDMS 21:56 Urine Test-In Lab Ordered. EDMS 22:22 Urinalysis Reviewed. mo1 22:27 Financial registration complete. gjb 22:29 Urine Test-In Lab Reviewed. mo1 22:59 CBC with Diff Reviewed. mo1 23:08 Liver Profile Reviewed. mo1 23:08 Lipase Reviewed. mo1 23:08 Basic Metabolic Profile Reviewed. mo1 23:15 [facility] Payment Agreement was scanned into [employer] and attached to record. [facility] 07/25 09:32 T-Sheet-- Draft Copy was scanned into [employer] and attached to record. gb Administered Medications: 07/24 22:43 Drug: NS 0.9% 1000 ml [sodium chloride 0.9 % intravenous solution] Route: IV; Rate: lf1 bolus; Site: left antecubital; 23:46 Follow up: IV Status: Completed infusion; IV Intake: 1000ml lf1 22:44 Drug: Ondansetron 4 mg Route: IVP; Site: left antecubital; lf1 23:25 Follow up: Response: Nausea is decreased mf4 Signatures: Dispatcher [employer] EDMS Riri Peraza, Reg Reg gb Tiarra OnealRN RN lf1 Franchesca Riley RN RN rs3 Chris Sellers,DYE BECK REEL OPERATOR DYE BECK REEL OPERATOR mf4 Chris Woo PA PA mo1 Mely Hankins [facility] The chart was reviewed and I authenticate all verbal orders and agree with the evaluation and treatment provided.Attachments: 23:15 [facility] Payment Agreement [facility] 07/25 09:32 T-Sheet-- Draft Copy gb Chart Complete MTDD
== END 2016-07-25 00:29 | disposition home or self-care (01) ==
LOC: M ED 20:11
DX: R11.2 Nausea with vomiting, unspecified (principal); R19.7 Diarrhea, unspecified; E86.0 Dehydration; F41.9 Anxiety disorder, unspecified; F32.9 Major depressive disorder, single episode, unspecified; G40.909 Epilepsy, unspecified, not intractable, without status epilepticus; Z72.0 Tobacco use; Z79.899 Other long term (current) drug therapy; Z91.030 Bee allergy status
CPT/HCPCS: 36415; 80048; 80076; 81001; 83690; 84703; 85025; 96361; 96374; 99284; J2405

== ENCOUNTER → 2016-09-19 | Outpatient (REF) | payer OTHER ==
[2016-09-19 16:29] LABS: FREE T4 1.27 NG/DL (0.76-1.46)
[2016-09-19 16:35] LABS: BASO # 0.1 K/mm3 (0.0-0.2); BASO % 0.7 % (0.0-1.0); EOS # 0.3 K/mm3 (0.0-0.50); EOS % 2.8 % (0.0-3.0); LARGE UNSTAINED CELL # 0.2 K/mm3 (0.0-0.4); LARGE UNSTAINED CELL % 2.1 % (0.0-4.0); LYMPH # 3.9 K/mm3 (1.5-6.5); LYMPH % 35.3 % (24.0-44.0); MEAN CORPUSCULAR HEMOGLOBIN 28.8 pg (27.0-33.0); MEAN CORPUSCULAR HGB CONC 32.8 g/dl (32.0-36.5); MEAN CORPUSCULAR VOLUME 87.9 fl (80.0-96.0); MONO # 0.8 K/mm3 (0.0-0.8); MONO % 7.1 % (0.0-5.0); NEUTROPHILS # 5.5 K/mm3 (1.8-7.7); NEUTROPHILS % 52.1 % (36.0-66.0); PLATELET COUNT, AUTOMATED 297 k/mm3 (150-450); RED CELL DISTRIBUTION WIDTH 13.2 % (11.5-14.5); WHITE BLOOD COUNT 10.5 K/mm3 (4.0-10.0)
== END ==
LOC: M SFHCPLAZ 11:06
PROVIDERS: ATTEND Nurse Practitioner Family
DX: R53.83 Other fatigue (principal); E55.9 Vitamin D deficiency, unspecified

== ENCOUNTER → 2016-10-19 | Outpatient (REF) | payer OTHER | LOC: M SFHCWAGY 12:31 | PROVIDERS: ATTEND Nurse Practitioner Women's Health | DX: Z12.4 Encounter for screening for malignant neoplasm of cervix (principal); R87.610 Atypical squamous cells of undetermined significance on cytologic smear of cervix (ASC-US) ==